=== PATIENT | male | born 1955 | race Caucasian/White ===

== ENCOUNTER 2023-05-10 12:17 | Inpatient (IN) | payer MEDICARE, SELFPAY ==
[2023-05-10 13:08] VITALS: BP 167/84; PULSE 62; RESP 18; TEMP 36.5; O2SAT 95; BMI 33.8
--- NOTE | 2023-05-10 13:24 | ED.PSYCH ---
HPI - Psych General Chief Complaint: Psychiatric Symptoms Stated Complaint: Hearing voices/Crisis Time Seen by Provider: 05/10/23 13:13 Source: patient and EMS Mode of arrival: ambulatory Limitations: no limitations History of Present Illness HPI Narrative: 68-year-old male aware person place time presents to the emergency department for hearing voices. Patient riding a bus got off came here he states he is looking for his phone initially now he states he is looking for his wallet at a psych facility. When asked the patient if he felt suicidal he states he does not know. Asked multiple times explaining that if he states that he is not suicidal explaining that I know that I am not suicidal they be safe to go home he continued to stay I do not know or not answer the question I do not feel comfortable with patient going home since he is hearing voices and might be suicidal I will place patient on [facility] 12 having evaluated by crisis. Related Data Home Medications Medication Instructions Recorded Confirmed atorvastatin 20 mg PO BEDTIME 05/10/23 05/10/23 clonidine 0.1 mg PO DAILY 05/10/23 05/10/23 lisinopril 5 mg PO BEDTIME 05/10/23 05/10/23 metformin 500 mg tablet,extended 500 mg PO DAILY 05/10/23 05/10/23 release 24 hr mirtazapine 25 mg PO BID 05/10/23 05/10/23 olanzapine 15 mg PO BEDTIME 05/10/23 05/10/23 pantoprazole 40 mg PO DAILY 05/10/23 05/10/23 Allergies Allergy/AdvReac Type Severity Reaction Status Date / Time No Known Allergies Allergy Verified 05/10/23 12:32 Review of Systems Review of Systems: Review of systems: General: Patient denies any fever chills recent illness or falls Musculoskeletal: Denies back pain or body aches or other injuries HEENT: denies headache, runny nose, ear pain Respiratory: denies shortness of breath, cough Cardiovascular: no chest pain or palpitations : denies dysuria, frequency Abdomen: no nausea vomiting denies abdominal pain Extremities: no swelling, no pain Skin: no diaphoresis Yes all other systems are reviewed and are negative PMFSH Social History Social History Alcohol intake: unknown Use of substances other than those prescribed or required for medical reasons: Unknown Advance Directives: No Advance Directives Information Provided: Yes Physical Exam Vital Signs: Vital Signs: Last Vital Signs Temp 97.7 F 05/10/23 13:08 Pulse 62 05/10/23 13:08 Resp 18 05/10/23 13:08 BP 167/84 H 05/10/23 13:08 Pulse Ox 95 05/10/23 13:08 O2 Del Method Room Air 05/10/23 13:08 BMI result Body Mass Index 33.8 General: Well-appearing well-nourished in no signs of distress HEENT: Normocephalic atraumatic Neck: No signs of JVD, no masses no tenderness or lymphadenopathy Cardiovascular: Regular rate and rhythm Respiratory: Clear to auscultation bilaterally Abdomen: Soft nontender no masses rectal exam performed guiac negative quality systems specialist confirmed. Extremities: Normal pedal pulses no signs of edema Skin: Dry warm no rashes Back: No tenderness full ROM Course Reevaluation(s) Reevaluation #1: 1929 Patient is actively suicidal by buying heroin. Time: 19:29 Medical Decision Making Medical Decision Making MDM Narrative: Patient is noncommittal about being suicidal I am concerned that he is suicidal he is hearing voices I do not feel comfortable discharging the patient home as I started to leave the room approximately 5 minutes after evaluating the patient explaining to the nurse with plan was water conversation was he started to scream for across the room. I am not suicidal I am not suicidal. I feel like his story is too concerning to just discharge. I will have crisis evaluate the patient. 1928 Seen by crisis will be inpatient bed search. Differential Diagnosis Differential Diagnoses: The differential diagnosis associated with the presentation includes Acute on chronic psychosis Admission/Observation Consideration of admission/observation: Escalation of care including admission/observation considered Lab Data [facility] Lab Attestation statement: I reviewed the patient's lab results. 05/10/23 13:55 05/10/23 13:55 Labs: Lab Results 05/10/23 05/10/23 05/10/23 Range/Units 12:58 13:55 13:55 WBC 5.8 (4.8-10.8) X10*3/uL RBC 5.68 (4.60-5.80) X10*6/uL Hgb 13.3 L (14.0-18.0) g/dl Hct 43.1 (42.0-52.0) % MCV 75.9 L (80.0-98.0) fL MCH 23.4 L (27.0-33.0) pg MCHC 30.9 L (31.0-36.0) g/dl RDW 19.0 H (11.0-16.0) % Plt Count 245 (160-400) X10*3/uL MPV 8.7 L (9.4-12.4) fL Immature Gran % (Auto) 0.3 (0.0-0.4) % Neut % (Auto) 57.1 (45-73) % Lymph % (Auto) 29.5 (20-40) % [place] % (Auto) 7.3 (2-11) % Eos % (Auto) 4.9 H (0-4) % Baso % (Auto) 0.9 (0-2) % Lymph # (Auto) 1.7 (1.2-4.9) X10*3/uL [place] # (Auto) 0.4 (0.1-1.2) X10*3/uL Eos # (Auto) 0.3 (0.0-0.4) X10*3/uL Baso # (Auto) 0.1 (0.0-0.2) X10*3/uL Abs Immat Gran (auto) 0.02 (0.00-0.03) X10*3/uL Absolute Neuts (auto) 3.3 (2.0-8.3) x10*3/uL Absolute Nucleated RBC 0.020 H (0.0-0.012) X10*3/uL Nucleated RBC % (auto) 0.3 H (0.0-0.2) /100WBC Sodium 141 (135-145) mmol/L Potassium 4.1 (3.3-5.1) mmol/L Chloride 102 (96-108) mmol/L Carbon Dioxide 25 (22-29) mmol/L Anion Gap 18 (12-20) BUN 17 H (9-16) mg/dL Creatinine 1.42 H (0.5-1.4) mg/dL Estim Creat Clear Calc 68.8 Estimated GFR 50 POC Glucose 84 (60-115) mg/dL Random Glucose 141 H (60-115) mg/dL Calcium 10.5 H (8.4-10.2) mg/dL Magnesium 2.3 (1.6-2.6) mg/dL Total Bilirubin 0.7 (0.0-1.0) mg/dL AST 23 (5-37) U/L ALT 23 (0-40) U/L Alkaline Phosphatase 99 (39-117) U/L Total Protein 8.6 H (6.5-8.0) g/dL Albumin 4.8 (3.5-5.0) g/dL Urine Color Urine Appearance Urine pH (5.0-9.0) Ur Specific [place] (1.005-1.025) Urine Protein (Neg-Trace) mg/dL Urine Glucose (UA) (Negative) mg/dL Urine Ketones (Negative) mg/dL Urine Blood (Negative) Urine Nitrite (Negative) Ur Leukocyte Esterase (Negative) Urine RBC (0-2) /HPF Urine WBC (0-5) /HPF Ur Squamous Epith Cells (0-2) /HPF Urine Bacteria (None Seen) Hyaline Casts (0-2) /LPF Salicylates (15-30) mg/dL Urine Opiates Screen (Not Detect) Urine Fentanyl Screen (Not Detect) Acetaminophen (<30) mcg/mL Ur Barbiturates Screen (Not Detect) Ur Phencyclidine Scrn (Not Detect) Ur Amphetamines Screen (Not Detect) U Benzodiazepines Scrn (Not Detect) Urine Cocaine Screen (Not Detect) U Marijuana (THC) Screen (Not Detect) Ethyl Alcohol < 10 mg/dL COVID-19 (CRISTIAN) (Negative) COVID-19 Clin Com 05/10/23 05/10/23 05/10/23 Range/Units 13:55 13:55 16:28 WBC (4.8-10.8) X10*3/uL RBC (4.60-5.80) X10*6/uL Hgb (14.0-18.0) g/dl Hct (42.0-52.0) % MCV (80.0-98.0) fL MCH (27.0-33.0) pg MCHC (31.0-36.0) g/dl RDW (11.0-16.0) % Plt Count (160-400) X10*3/uL MPV (9.4-12.4) fL Immature Gran % (Auto) (0.0-0.4) % Neut % (Auto) (45-73) % Lymph % (Auto) (20-40) % [place] % (Auto) (2-11) % Eos % (Auto) (0-4) % Baso % (Auto) (0-2) % Lymph # (Auto) (1.2-4.9) X10*3/uL [place] # (Auto) (0.1-1.2) X10*3/uL Eos # (Auto) (0.0-0.4) X10*3/uL Baso # (Auto) (0.0-0.2) X10*3/uL Abs Immat Gran (auto) (0.00-0.03) X10*3/uL Absolute Neuts (auto) (2.0-8.3) x10*3/uL Absolute Nucleated RBC (0.0-0.012) X10*3/uL Nucleated RBC % (auto) (0.0-0.2) /100WBC Sodium (135-145) mmol/L Potassium (3.3-5.1) mmol/L Chloride (96-108) mmol/L Carbon Dioxide (22-29) mmol/L Anion Gap (12-20) BUN (9-16) mg/dL Creatinine (0.5-1.4) mg/dL Estim Creat Clear Calc Estimated GFR POC Glucose (60-115) mg/dL Random Glucose (60-115) mg/dL Calcium (8.4-10.2) mg/dL Magnesium (1.6-2.6) mg/dL Total Bilirubin (0.0-1.0) mg/dL AST (5-37) U/L ALT (0-40) U/L Alkaline Phosphatase (39-117) U/L Total Protein (6.5-8.0) g/dL Albumin (3.5-5.0) g/dL Urine Color Yellow Urine Appearance Clear Urine pH 5.5 (5.0-9.0) Ur Specific [place] 1.020 (1.005-1.025) Urine Protein Trace (Neg-Trace) mg/dL Urine Glucose (UA) Negative (Negative) mg/dL Urine Ketones Trace (Negative) mg/dL Urine Blood Negative (Negative) Urine Nitrite Negative (Negative) Ur Leukocyte Esterase Small (1+) H (Negative) Urine RBC 0-2 (0-2) /HPF Urine WBC 6-10 (0-5) /HPF Ur Squamous Epith Cells 0-2 (0-2) /HPF Urine Bacteria 3+ (None Seen) Hyaline Casts 6-10 (0-2) /LPF Salicylates < 5.0 L (15-30) mg/dL Urine Opiates Screen (Not Detect) Urine Fentanyl Screen (Not Detect) Acetaminophen < 17 (<30) mcg/mL Ur Barbiturates Screen (Not Detect) Ur Phencyclidine Scrn (Not Detect) Ur Amphetamines Screen (Not Detect) U Benzodiazepines Scrn (Not Detect) Urine Cocaine Screen (Not Detect) U Marijuana (THC) Screen (Not Detect) Ethyl Alcohol mg/dL COVID-19 (CRISTIAN) Negative (Negative) COVID-19 Clin Com See Note 05/10/23 Range/Units 16:28 WBC (4.8-10.8) X10*3/uL RBC (4.60-5.80) X10*6/uL Hgb (14.0-18.0) g/dl Hct (42.0-52.0) % MCV (80.0-98.0) fL MCH (27.0-33.0) pg MCHC (31.0-36.0) g/dl RDW (11.0-16.0) % Plt Count (160-400) X10*3/uL MPV (9.4-12.4) fL Immature Gran % (Auto) (0.0-0.4) % Neut % (Auto) (45-73) % Lymph % (Auto) (20-40) % [place] % (Auto) (2-11) % Eos % (Auto) (0-4) % Baso % (Auto) (0-2) % Lymph # (Auto) (1.2-4.9) X10*3/uL [place] # (Auto) (0.1-1.2) X10*3/uL Eos # (Auto) (0.0-0.4) X10*3/uL Baso # (Auto) (0.0-0.2) X10*3/uL Abs Immat Gran (auto) (0.00-0.03) X10*3/uL Absolute Neuts (auto) (2.0-8.3) x10*3/uL Absolute Nucleated RBC (0.0-0.012) X10*3/uL Nucleated RBC % (auto) (0.0-0.2) /100WBC Sodium (135-145) mmol/L Potassium (3.3-5.1) mmol/L Chloride (96-108) mmol/L Carbon Dioxide (22-29) mmol/L Anion Gap (12-20) BUN (9-16) mg/dL Creatinine (0.5-1.4) mg/dL Estim Creat Clear Calc Estimated GFR POC Glucose (60-115) mg/dL Random Glucose (60-115) mg/dL Calcium (8.4-10.2) mg/dL Magnesium (1.6-2.6) mg/dL Total Bilirubin (0.0-1.0) mg/dL AST (5-37) U/L ALT (0-40) U/L Alkaline Phosphatase (39-117) U/L Total Protein (6.5-8.0) g/dL Albumin (3.5-5.0) g/dL Urine Color Urine Appearance Urine pH (5.0-9.0) Ur Specific [place] (1.005-1.025) Urine Protein (Neg-Trace) mg/dL Urine Glucose (UA) (Negative) mg/dL Urine Ketones (Negative) mg/dL Urine Blood (Negative) Urine Nitrite (Negative) Ur Leukocyte Esterase (Negative) Urine RBC (0-2) /HPF Urine WBC (0-5) /HPF Ur Squamous Epith Cells (0-2) /HPF Urine Bacteria (None Seen) Hyaline Casts (0-2) /LPF Salicylates (15-30) mg/dL Urine Opiates Screen Not Detected (Not Detect) Urine Fentanyl Screen POSITIVE H (Not Detect) Acetaminophen (<30) mcg/mL Ur Barbiturates Screen Not Detected (Not Detect) Ur Phencyclidine Scrn Not Detected (Not Detect) Ur Amphetamines Screen Not Detected (Not Detect) U Benzodiazepines Scrn Not Detected (Not Detect) Urine Cocaine Screen POSITIVE H (Not Detect) U Marijuana (THC) Screen POSITIVE H (Not Detect) Ethyl Alcohol mg/dL COVID-19 (CRISTIAN) (Negative) COVID-19 Clin Com External Record Review External record reviewed: Inpatient record He has no previous visits here. Social Determinants Patient?s care significantly limited by Social Determinants of Health including: Inadequate housing and Low income Core Measures AMI core measures followed: Yes Discharge Plan Discharge Clinical Impression: Acute psychosis Patient Disposition: Still a Patient Prescriptions: No Action clonidine 0.1 mg PO DAILY mirtazapine 25 mg PO BID pantoprazole 40 mg PO DAILY lisinopril 5 mg PO BEDTIME atorvastatin 20 mg PO BEDTIME metformin 500 mg Tablet Extended Release 24 Hr 500 mg PO DAILY olanzapine 15 mg PO BEDTIME Interventions: [place]-Suicide Risk Severity Scale Last Done: 05/10/23 14:05
[2023-05-10 14:18] LABS: Alanine Aminotransferase 23 U/L (0-40); Albumin Level 4.8 g/dL (3.5-5.0); Alkaline Phosphatase 99 U/L (39-117); Anion Gap 18 (12-20); Aspartate Amino Transferase 23 U/L (5-37); Bilirubin Total 0.7 mg/dL (0.0-1.0); Blood Urea Nitrogen 17 mg/dL (9-16); Calcium 10.5 mg/dL (8.4-10.2); Carbon Dioxide 25 mmol/L (22-29); Chloride 102 mmol/L (96-108); Creatinine Clr Calc Pharmacy 68.8; Estimated Glomerular Filt Rate 50; Ethanol < 10 mg/dL; Glucose Random 141 mg/dL (60-115); Magnesium 2.3 mg/dL (1.6-2.6); Potassium 4.1 mmol/L (3.3-5.1); Sodium 141 mmol/L (135-145); Total Protein 8.6 g/dL (6.5-8.0)
--- NOTE | 2023-05-10 14:32 | PC.NURSE ---
Pt appears to be hearing voices and seeing things. Laying on bed with eyes closed, yelling 'get the f--- away from me, I'll kill your ass'. Straws found in pt's wallet. MCKEON not obtained yet
[2023-05-10 20:59] VITALS: BP 151/74; PULSE 65; RESP 18; TEMP 36.6; O2SAT 95
[2023-05-11 01:48] VITALS: BP 147/79; PULSE 60; RESP 20; TEMP 36.3; O2SAT 98
--- NOTE | 2023-05-11 05:34 | PC.NURSE ---
Patient slept through the night, no distress observed/reported, medication rec completed/approved/MAR active, behavior non concerning, disposition per care team is section 12 inpatient bed search, VSS, labs completed/resulted, will continue to monitor.
--- NOTE | 2023-05-11 07:08 | HE.PHANOTE ---
Re: methadone verification last dose 95 mg 05/10/23 with [facility] [phone]
[2023-05-11] MEDS: methADONE HCl 20 MG/2 ML ORAL.CONC 95 MG PO (07:17)
--- NOTE | 2023-05-11 09:24 | PC.NURSE ---
Pt currently sleeping; AM meds held until patient wakes. RR are even and unlabored bilaterally on RA. WCTA
[2023-05-11] MEDS: metFORMIN HCl ER 500 MG TAB.ER.24H PO (09:56)
[2023-05-11] MEDS: Omeprazole 20 MG CAPSULE.DR PO (09:56)
[2023-05-11] MEDS: QUEtiapine Fumarate 25 MG TABLET PO ×2 (09:56→20:52)
[2023-05-11] MEDS: cloNIDine HCL 0.1 MG TABLET PO (09:57)
[2023-05-11 11:55] VITALS: BP 109/62; PULSE 60; RESP 20; TEMP 36.8; O2SAT 96
--- NOTE | 2023-05-11 15:51 | P.HPPS_ITS ---
HPI Date of Service: 05/11/23 Chief Complaint: SI Sources of Information: patient interviewed, chart reviewed and crisis/core team assessment reviewed HPI Subjective Notes: Deng Warning and Conditional Voluntary Narrative: The patient is a 68-year-old male, living alone in [place], referred from the emergency room by the care team for continuation of care. The patient presented to [facility] Emergency Room stating that he is hearing voices and he feels suicidal. Apparently, a few days ago he was at [facility] and discharged to his place with follow-up appointments. He stated that in the previous admission, daily lost his home and they were going to reverse him. He came to [place] with the money to buy heroin and try to kill himself. He stated that he was going to buy heroin to go to sleep and never wake up again.. On interview, the patient was very tired, he stated that he was hearing voices and he was feeling suicidal. He was able to elaborate about the content of the auditory hallucinations, there were voices with derogatory content commanding him to kill himself. He was internally preoccupied, looking that he was responding to internal stimuli. I offer him options and he agreed to take Zyprexa p.r.n.. At this moment, we have very limited information but the patient admitted suicidal ideation with auditory hallucination and he was unable to contract for safety at this moment. We will try to gather collateral information the next hours. Past Psychiatric History: The patient was recently admitted at another facility for suicidal ideation and psychosis. We do not have more information at this moment. Medical Evaluation Reviewed: Hospitalist Garimaal Pending [facility] Family History: Unknown, the patient is unable to provide information Social History: According to the crisis team, the patient lives alone in [place] he is single never and does not have social support. Substance History: He admitted prior substance abuse, his U tox came up positive to cocaine fentanyl and opioids with cannabis Trauma History: Unable to elaborate Diagnostics Vital Signs (24Hr): Vital Signs - 24 hr 05/10/23 20:59 05/11/23 01:48 05/11/23 11:55 Temperature 97.8 F 97.4 F 98.2 F Pulse Rate 65 60 60 Respiratory Rate 18 20 20 Blood Pressure 151/74 H 147/79 H 109/62 Pulse Oximetry 95 98 96 Oxygen Delivery Method Room Air Room Air Room Air BMI result Body Mass Index 33.8 Labs 05/10/23 13:55 05/10/23 13:55 Labs: Laboratory Results - last 48 hr 05/10/23 05/10/23 05/10/23 12:58 13:55 13:55 WBC 5.8 RBC 5.68 Hgb 13.3 L Hct 43.1 MCV 75.9 L MCH 23.4 L MCHC 30.9 L RDW 19.0 H Plt Count 245 MPV 8.7 L Immature Gran % (Auto) 0.3 Neut % (Auto) 57.1 Lymph % (Auto) 29.5 [place] % (Auto) 7.3 Eos % (Auto) 4.9 H Baso % (Auto) 0.9 Lymph # (Auto) 1.7 [place] # (Auto) 0.4 Eos # (Auto) 0.3 Baso # (Auto) 0.1 Abs Immat Gran (auto) 0.02 Absolute Neuts (auto) 3.3 Absolute Nucleated RBC 0.020 H Nucleated RBC % (auto) 0.3 H Sodium 141 Potassium 4.1 Chloride 102 Carbon Dioxide 25 Anion Gap 18 BUN 17 H Creatinine 1.42 H Estim Creat Clear Calc 68.8 Estimated GFR 50 POC Glucose 84 Random Glucose 141 H Calcium 10.5 H Magnesium 2.3 Total Bilirubin 0.7 AST 23 ALT 23 Alkaline Phosphatase 99 Total Protein 8.6 H Albumin 4.8 Urine Color Urine Appearance Urine pH Ur Specific [place] Urine Protein Urine Glucose (UA) Urine Ketones Urine Blood Urine Nitrite Ur Leukocyte Esterase Urine RBC Urine WBC Ur Squamous Epith Cells Urine Bacteria Hyaline Casts Salicylates Urine Opiates Screen Urine Fentanyl Screen Acetaminophen Ur Barbiturates Screen Ur Phencyclidine Scrn Ur Amphetamines Screen U Benzodiazepines Scrn Urine Cocaine Screen U Marijuana (THC) Screen Ethyl Alcohol < 10 COVID-19 (CRISTIAN) COVID-19 Clin Com 05/10/23 05/10/23 05/10/23 13:55 13:55 16:28 WBC RBC Hgb Hct MCV MCH MCHC RDW Plt Count MPV Immature Gran % (Auto) Neut % (Auto) Lymph % (Auto) [place] % (Auto) Eos % (Auto) Baso % (Auto) Lymph # (Auto) [place] # (Auto) Eos # (Auto) Baso # (Auto) Abs Immat Gran (auto) Absolute Neuts (auto) Absolute Nucleated RBC Nucleated RBC % (auto) Sodium Potassium Chloride Carbon Dioxide Anion Gap BUN Creatinine Estim Creat Clear Calc Estimated GFR POC Glucose Random Glucose Calcium Magnesium Total Bilirubin AST ALT Alkaline Phosphatase Total Protein Albumin Urine Color Yellow Urine Appearance Clear Urine pH 5.5 Ur Specific [place] 1.020 Urine Protein Trace Urine Glucose (UA) Negative Urine Ketones Trace Urine Blood Negative Urine Nitrite Negative Ur Leukocyte Esterase Small (1+) H Urine RBC 0-2 Urine WBC 6-10 Ur Squamous Epith Cells 0-2 Urine Bacteria 3+ Hyaline Casts 6-10 Salicylates < 5.0 L Urine Opiates Screen Urine Fentanyl Screen Acetaminophen < 17 Ur Barbiturates Screen Ur Phencyclidine Scrn Ur Amphetamines Screen U Benzodiazepines Scrn Urine Cocaine Screen U Marijuana (THC) Screen Ethyl Alcohol COVID-19 (CRISTIAN) Negative COVID-XOR.MOTORS See Note 05/10/23 16:28 WBC RBC Hgb Hct MCV MCH MCHC RDW Plt Count MPV Immature Gran % (Auto) Neut % (Auto) Lymph % (Auto) [place] % (Auto) Eos % (Auto) Baso % (Auto) Lymph # (Auto) [place] # (Auto) Eos # (Auto) Baso # (Auto) Abs Immat Gran (auto) Absolute Neuts (auto) Absolute Nucleated RBC Nucleated RBC % (auto) Sodium Potassium Chloride Carbon Dioxide Anion Gap BUN Creatinine Estim Creat Clear Calc Estimated GFR POC Glucose Random Glucose Calcium Magnesium Total Bilirubin AST ALT Alkaline Phosphatase Total Protein Albumin Urine Color Urine Appearance Urine pH Ur Specific [place] Urine Protein Urine Glucose (UA) Urine Ketones Urine Blood Urine Nitrite Ur Leukocyte Esterase Urine RBC Urine WBC Ur Squamous Epith Cells Urine Bacteria Hyaline Casts Salicylates Urine Opiates Screen Not Detected Urine Fentanyl Screen POSITIVE H Acetaminophen Ur Barbiturates Screen Not Detected Ur Phencyclidine Scrn Not Detected Ur Amphetamines Screen Not Detected U Benzodiazepines Scrn Not Detected Urine Cocaine Screen POSITIVE H U Marijuana (THC) Screen POSITIVE H Ethyl Alcohol COVID-19 (CRISTIAN) COVID-XOR.MOTORS Meds/Allergies Meds Home Medications Medication Instructions Recorded Confirmed Type atorvastatin 20 mg PO BEDTIME 05/10/23 05/10/23 History clonidine 0.1 mg PO DAILY 05/10/23 05/10/23 History lisinopril 5 mg PO BEDTIME 05/10/23 05/10/23 History metformin 500 mg tablet,extended 500 mg PO DAILY 05/10/23 05/10/23 History release 24 hr olanzapine 15 mg PO BEDTIME 05/10/23 05/10/23 History pantoprazole 40 mg PO DAILY 05/10/23 05/10/23 History quetiapine 25 mg tablet 25 mg PO BID 05/10/23 05/10/23 History methadone 10 mg/5 mL oral solution 95 mg PO DAILY 05/11/23 05/11/23 History Allergies Allergies Allergy/AdvReac Type Severity Reaction Status Date / Time No Known Allergies Allergy Verified 05/10/23 12:32 Mental Status Exam Mental Status Exam Patient Appearance: Disheveled and Unkempt Patient Orientation: Person and Situation Level of Consciousness: Awake and Appropriate Patient Behavior: Guarded, Passive and Poor Eye Contact Mood Description: Withdrawn, Depressed and Sad Affect Description: Blunted Patient Cognition Impaired: Yes Ability to Follow Directions: Fair Speech Pattern: Monotone and Poor Articulation Hallucinations: Auditory Delusions: Paranoid Ideation Thought Process: Illogical and Slowed Thinking Thought Content: positive for [place], positive for Loose Associations and positive for Thought Blocking Judgement: Poor Assessment & Plan Assessment & Plan (1) Acute psychosis: Status: Acute Code(s): F23 - Brief psychotic disorder Plan The patient is a 68-year-old male with a past history of psychosis and depression admitted for suicidal ideation with intent to overdose on heroin. The patient was recently admitted into the hospital and discharged with follow-up treatment but then he came at [place] with a plan to kill himself by overdose. Plan 1. Gather collateral information at this moment we have very few information regarding his prior treatment. 2. The patient is actively psychotic hearing voices with derogatory content he agreed to take Zyprexa 5 mg p.o. now. 3. Blood work and medication management. 4. 5 minute checks. 5. Reassessment with results. Patient educated on: diagnosis and therapeutic strategies Informed Consent: understands Reason for continued inpatient stay Substantial Risk for: harm to self, inability to function, rapid decompensation and med/psych decompensation Statement Statement: I have reviewed the history and physical and performed a pertinent examination on my patient. No changes have occurred unless specified. If the History and Physical was not performed prior to admission, the Hospitalist's service will be consulted for completing the admission physical. Time Spent With Patient Time: Total time managing care of this patient today __45__ minutes.
[2023-05-11] MEDS: OLANZapine ODT 10 MG TAB.RAPDIS 5 MG TRANSLINGU (16:19)
--- NOTE | 2023-05-11 16:39 | PC.ADMIT ---
Addendum entered by Yvonne Montague RN 05/11/23 18:08: Pt. awakened and agreed to sign release for sister. Sister Pepper Kat updated by telephone about pt's admission. States pt. says she is his HCP but she has never actually signed the paperwork. Original Note: Pt. arrived on unit 11:45 via WC accompanied by this com writer and security. Pt. admitted from [facility] pod for SI with plan. Pt. malodorous and disheveled. Able to move independently without assistive devices. Difficult to rouse and maintain wakefulness for tranfer to unit. Pt. was recently inpatient at [facility]. He reports they lost his phone and agreed to reimburse him half its cost. He reports that he took a bus from [place] to [place] to collect this money and purchase Heroin to kill himself, because I'm tired. I've lived. I just want to go to sleep and not wake up. Pt. denies VH, but endorses auditory command hallucinations to hurt himself. He also reports homicidal ideation with no current plan. He reports he has been incarcerated in the past for assault and attempted murder. Pt. refused to relinquish metal neck chain with pendent upon arrival on unit, but eventually agreed to hand it over. He then ate lunch and slept and refused to further participate in any admission assessments. He reports he is so tired because he has been on a long cocaine run and has not slept for a long time. He reports he is at risk to lose his apartment and is in the middle of a court ordered eviction.
[2023-05-11 18:00] VITALS: BP 105/62; PULSE 62; RESP 18; TEMP 36.1; O2SAT 93
[2023-05-11] MEDS: OLANZapine 7.5 MG TABLET 15 MG PO (20:51)
[2023-05-11] MEDS: traZODone HCL 50 MG TABLET PO (20:51)
[2023-05-11] MEDS: Atorvastatin Calcium 20 MG TABLET PO (20:52)
[2023-05-11] MEDS: lisinopriL 5 MG TABLET PO (20:52)
[2023-05-12 00:17] LABS: Glucose, Whole Blood 92 mg/dL (60-115)
[2023-05-12 08:07] VITALS: BP 135/71; PULSE 60; RESP 15; TEMP 36.7; O2SAT 93
[2023-05-12] MEDS: Omeprazole 20 MG CAPSULE.DR PO (08:09)
[2023-05-12] MEDS: metFORMIN HCl ER 500 MG TAB.ER.24H PO (08:09)
[2023-05-12] MEDS: QUEtiapine Fumarate 25 MG TABLET PO ×2 (08:09→20:50)
[2023-05-12] MEDS: cloNIDine HCL 0.1 MG TABLET PO (08:09)
[2023-05-12] MEDS: methADONE HCl 20 MG/2 ML ORAL.CONC 95 MG PO (08:43)
[2023-05-12 08:54] LABS: Alanine Aminotransferase 21 U/L (0-40); Albumin Level 4.4 g/dL (3.5-5.0); Alkaline Phosphatase 100 U/L (39-117); Anion Gap 14 (12-20); Aspartate Amino Transferase 22 U/L (5-37); Bilirubin Total 0.5 mg/dL (0.0-1.0); Blood Urea Nitrogen 18 mg/dL (9-16); Calcium 10.7 mg/dL (8.4-10.2); Carbon Dioxide 26 mmol/L (22-29); Chloride 104 mmol/L (96-108); Cholesterol 252 mg/dL; Creatinine Clr Calc Pharmacy 79.4; Estimated Glomerular Filt Rate 59; Glucose Fasting 112 mg/dL (60-99); HDL Cholesterol 50 mg/dL; LDL Cholesterol Calculated 181 mg/dl; Potassium 4.3 mmol/L (3.3-5.1); Sodium 140 mmol/L (135-145); Total Protein 7.7 g/dL (6.5-8.0); Triglycerides 106 mg/dL
--- NOTE | 2023-05-12 11:01 | P.PNPSI_ITS ---
Subjective Subjective Date of Service: 05/12/23 Reason For Visit: SI Subjective Notes: Conditional Voluntary Interim History: The nursing staff reported the patient have verbalized suicidal ideation in the morning, he also admitted auditory hallucinations with derogatory content. On interview, the patient remains internally preoccupied, psychotic but it was still him to heal himself. We will try to gather more collateral information since he was recently admitted into another facility. Mental Status Exam Mental Status Exam Patient Appearance: Appropriate Patient Orientation: Person and Situation Level of Consciousness: Awake and Appropriate Patient Behavior: Guarded and Passive Mood Description: Withdrawn Affect Description: Blunted Ability to Follow Directions: Fair Speech Pattern: Clear Hallucinations: Auditory (With derogatory content, commanding him to hurt himself) Delusions: Paranoid Ideation Thought Process: Distracted and Evasive Thought Content: positive for [place] and positive for Circumstantial Judgement: Poor Diagnostics Vital Signs (24Hr): Vital Signs - 24 hr 05/11/23 11:55 05/11/23 18:00 05/12/23 08:07 Temperature 98.2 F 96.9 F 98.1 F Pulse Rate 60 62 60 Respiratory Rate 20 18 15 Blood Pressure 109/62 105/62 135/71 Pulse Oximetry 96 93 93 Oxygen Delivery Method Room Air Room Air Room Air BMI result Body Mass Index 33.8 Labs 05/10/23 13:55 05/12/23 08:16 Labs: Laboratory Results - last 48 hr 05/10/23 05/10/23 05/10/23 12:58 13:55 13:55 WBC 5.8 RBC 5.68 Hgb 13.3 L Hct 43.1 MCV 75.9 L MCH 23.4 L MCHC 30.9 L RDW 19.0 H Plt Count 245 MPV 8.7 L Immature Gran % (Auto) 0.3 Neut % (Auto) 57.1 Lymph % (Auto) 29.5 [place] % (Auto) 7.3 Eos % (Auto) 4.9 H Baso % (Auto) 0.9 Lymph # (Auto) 1.7 [place] # (Auto) 0.4 Eos # (Auto) 0.3 Baso # (Auto) 0.1 Abs Immat Gran (auto) 0.02 Absolute Neuts (auto) 3.3 Absolute Nucleated RBC 0.020 H Nucleated RBC % (auto) 0.3 H Sodium 141 Potassium 4.1 Chloride 102 Carbon Dioxide 25 Anion Gap 18 BUN 17 H Creatinine 1.42 H Estim Creat Clear Calc 68.8 Estimated GFR 50 POC Glucose 84 Random Glucose 141 H Fasting Glucose Calcium 10.5 H Magnesium 2.3 Total Bilirubin 0.7 AST 23 ALT 23 Alkaline Phosphatase 99 Total Protein 8.6 H Albumin 4.8 Triglycerides Cholesterol LDL Cholesterol, Calc HDL Cholesterol Urine Color Urine Appearance Urine pH Ur Specific [place] Urine Protein Urine Glucose (UA) Urine Ketones Urine Blood Urine Nitrite Ur Leukocyte Esterase Urine RBC Urine WBC Ur Squamous Epith Cells Urine Bacteria Hyaline Casts Salicylates Urine Opiates Screen Urine Fentanyl Screen Acetaminophen Ur Barbiturates Screen Ur Phencyclidine Scrn Ur Amphetamines Screen U Benzodiazepines Scrn Urine Cocaine Screen U Marijuana (THC) Screen Ethyl Alcohol < 10 COVID-19 (CRISTIAN) COVID-WhatsApp 05/10/23 05/10/23 05/10/23 13:55 13:55 16:28 WBC RBC Hgb Hct MCV MCH MCHC RDW Plt Count MPV Immature Gran % (Auto) Neut % (Auto) Lymph % (Auto) [place] % (Auto) Eos % (Auto) Baso % (Auto) Lymph # (Auto) [place] # (Auto) Eos # (Auto) Baso # (Auto) Abs Immat Gran (auto) Absolute Neuts (auto) Absolute Nucleated RBC Nucleated RBC % (auto) Sodium Potassium Chloride Carbon Dioxide Anion Gap BUN Creatinine Estim Creat Clear Calc Estimated GFR POC Glucose Random Glucose Fasting Glucose Calcium Magnesium Total Bilirubin AST ALT Alkaline Phosphatase Total Protein Albumin Triglycerides Cholesterol LDL Cholesterol, Calc HDL Cholesterol Urine Color Yellow Urine Appearance Clear Urine pH 5.5 Ur Specific [place] 1.020 Urine Protein Trace Urine Glucose (UA) Negative Urine Ketones Trace Urine Blood Negative Urine Nitrite Negative Ur Leukocyte Esterase Small (1+) H Urine RBC 0-2 Urine WBC 6-10 Ur Squamous Epith Cells 0-2 Urine Bacteria 3+ Hyaline Casts 6-10 Salicylates < 5.0 L Urine Opiates Screen Urine Fentanyl Screen Acetaminophen < 17 Ur Barbiturates Screen Ur Phencyclidine Scrn Ur Amphetamines Screen U Benzodiazepines Scrn Urine Cocaine Screen U Marijuana (THC) Screen Ethyl Alcohol COVID-19 (CRISTIAN) Negative COVID-WhatsApp See Note 05/10/23 05/11/23 05/12/23 16:28 15:43 08:16 WBC RBC Hgb Hct MCV MCH MCHC RDW Plt Count MPV Immature Gran % (Auto) Neut % (Auto) Lymph % (Auto) [place] % (Auto) Eos % (Auto) Baso % (Auto) Lymph # (Auto) [place] # (Auto) Eos # (Auto) Baso # (Auto) Abs Immat Gran (auto) Absolute Neuts (auto) Absolute Nucleated RBC Nucleated RBC % (auto) Sodium 140 Potassium 4.3 Chloride 104 Carbon Dioxide 26 Anion Gap 14 BUN 18 H Creatinine 1.23 Estim Creat Clear Calc 79.4 Estimated GFR 59 POC Glucose 92 Random Glucose Fasting Glucose 112 H Calcium 10.7 H Magnesium Total Bilirubin 0.5 AST 22 ALT 21 Alkaline Phosphatase 100 Total Protein 7.7 Albumin 4.4 Triglycerides 106 Cholesterol 252 LDL Cholesterol, Calc 181 HDL Cholesterol 50 Urine Color Urine Appearance Urine pH Ur Specific [place] Urine Protein Urine Glucose (UA) Urine Ketones Urine Blood Urine Nitrite Ur Leukocyte Esterase Urine RBC Urine WBC Ur Squamous Epith Cells Urine Bacteria Hyaline Casts Salicylates Urine Opiates Screen Not Detected Urine Fentanyl Screen POSITIVE H Acetaminophen Ur Barbiturates Screen Not Detected Ur Phencyclidine Scrn Not Detected Ur Amphetamines Screen Not Detected U Benzodiazepines Scrn Not Detected Urine Cocaine Screen POSITIVE H U Marijuana (THC) Screen POSITIVE H Ethyl Alcohol COVID-19 (CRISTIAN) COVID-19 Clin Com Medications Medications Current Medications Acetaminophen (Acetaminophen 325 Mg Tablet) 650 mg PO Q6H PRN PRN Reason: Headache/Pain Mild Scale (1-3) Al Hydroxide/Mg Hydroxide (Magnesium Hydrox/Alum Hydrox 30 Ml Oral.Susp) 30 ml PO Q6H PRN PRN Reason: Heartburn/Nausea Atorvastatin Calcium (Atorvastatin Calcium 20 Mg Tablet) 20 mg PO BEDTIME [facility] Last Admin: 05/11/23 20:52 Dose: 20 mg Clonidine HCl (Clonidine Hcl 0.1 Mg Tablet) 0.1 mg PO DAILY [facility] Last Admin: 05/12/23 08:09 Dose: 0.1 mg Hydroxyzine HCl (Hydroxyzine Hcl 25 Mg Tablet) 25 mg PO Q6H PRN PRN Reason: Anxiety Lisinopril (Lisinopril 5 Mg Tablet) 5 mg PO BEDTIME [facility] Last Admin: 05/11/23 20:52 Dose: 5 mg Magnesium Hydroxide (Milk Of Magnesia 30 Ml Oral.Susp) 30 ml PO DAILY PRN PRN Reason: Constipation Metformin HCl (Metformin Hcl Er 500 Mg Tab.Er.24h) 500 mg PO DAILY [facility] Last Admin: 05/12/23 08:09 Dose: 500 mg Methadone HCl (Methadone Hcl 20 Mg/2 Ml Oral.Conc) 95 mg PO DAILY [facility] Last Admin: 05/12/23 08:43 Dose: 95 mg Olanzapine (Olanzapine 7.5 Mg Tablet) 15 mg PO BEDTIME [facility] Last Admin: 05/11/23 20:51 Dose: 15 mg Olanzapine (Olanzapine Odt 10 Mg Tab.Rapdis) 5 mg TRANSLINGU TID PRN PRN Reason: Psychosis Omeprazole (Omeprazole 20 Mg Capsule.Dr) 20 mg PO DAILY [facility] Last Admin: 05/12/23 08:09 Dose: 20 mg Quetiapine Fumarate (Quetiapine Fumarate 25 Mg Tablet) 25 mg PO BID [facility] Last Admin: 05/12/23 08:09 Dose: 25 mg Trazodone HCl (Trazodone Hcl 50 Mg Tablet) 50 mg PO BEDTIME [facility]X1 PRN PRN Reason: Insomnia Last Admin: 05/11/23 20:51 Dose: 50 mg Allergies Allergies Allergy/AdvReac Type Severity Reaction Status Date / Time No Known Allergies Allergy Verified 05/10/23 12:32 Assessment & Plan Assessment & Plan (1) Acute psychosis: Status: Acute Code(s): F23 - Brief psychotic disorder Plan The patient is a 68-year-old male with a past history of psychosis and depression admitted for suicidal ideation with intent to overdose on heroin. The patient was recently admitted into the hospital and discharged with follow-up treatment but then he came at [place] with a plan to kill himself by overdose. Plan 1. Gather collateral information at this moment we have very few information regarding his prior treatment. 2. The patient is actively psychotic hearing voices with derogatory content he agreed to take Zyprexa 5 mg p.o. now. 3. Blood work and medication management. 4. 5 minute checks. 5. Reassessment with results. Reason for continued inpatient stay Substantial Risk for: inability to function, rapid decompensation and med/psych decompensation Time Spent With Patient Time: Total time managing care of this patient today __20__ minutes.
[2023-05-12 20:50] VITALS: BP 127/63; PULSE 60; RESP 18; TEMP 36.7; O2SAT 94
[2023-05-12] MEDS: Atorvastatin Calcium 20 MG TABLET PO (20:50)
[2023-05-12] MEDS: OLANZapine 7.5 MG TABLET 15 MG PO (20:50)
[2023-05-12] MEDS: lisinopriL 5 MG TABLET PO (20:51)
[2023-05-12] MEDS: OLANZapine ODT 10 MG TAB.RAPDIS 5 MG TRANSLINGU (23:19)
[2023-05-13 07:00] VITALS: BMI 34.1
[2023-05-13 08:10] VITALS: BP 132/66; PULSE 60; RESP 18; TEMP 36.6; O2SAT 94
[2023-05-13] MEDS: methADONE HCl 20 MG/2 ML ORAL.CONC 95 MG PO (08:54)
[2023-05-13] MEDS: QUEtiapine Fumarate 25 MG TABLET PO ×2 (08:54→20:16)
[2023-05-13] MEDS: metFORMIN HCl ER 500 MG TAB.ER.24H PO (08:55)
[2023-05-13] MEDS: cloNIDine HCL 0.1 MG TABLET PO (08:55)
[2023-05-13] MEDS: Omeprazole 20 MG CAPSULE.DR PO (08:55)
--- NOTE | 2023-05-13 11:47 | HO.PSYCHPN ---
Subjective Subjective Date of Service: 05/13/23 Reason For Visit: SI Subjective Notes: Conditional Voluntary Interim History: The nursing staff reported the patient had been common cooperative, internally preoccupied, he had a slept and took all his meals but yesterday he reported auditory hallucinations with derogatory content and commanding him to hurt himself. I advised him to take Zyprexa p.r.n. frequently as needed. On interview the patient reports still auditory hallucinations so he agreed increase Zyprexa to 20 mg p.o. q.h.s.. The case management social worker reported that her sister has contact him and apparently he had been frequent incarcerated and his mother when he was in assisted. Still morning that loss. Mental Status Exam Mental Status Exam Patient Appearance: Disheveled and Unkempt Patient Orientation: Person and Situation Level of Consciousness: Awake and Appropriate Patient Behavior: Guarded and Passive Mood Description: Withdrawn Affect Description: Constricted Patient Cognition Impaired: Yes Ability to Follow Directions: Good Speech Pattern: Impoverished and Appropriate Hallucinations: Auditory Delusions: Paranoid Ideation Thought Process: Distracted and Slowed Thinking Thought Content: positive for [place] and positive for Poverty of Content Judgement: Fair Diagnostics Vital Signs (24Hr): Vital Signs - 24 hr 05/12/23 20:50 05/13/23 08:10 Temperature 98.0 F 97.8 F Pulse Rate 60 60 Respiratory Rate 18 18 Blood Pressure 127/63 132/66 Pulse Oximetry 94 94 Oxygen Delivery Method Room Air Room Air BMI result Body Mass Index 33.8 Labs 05/10/23 13:55 05/12/23 08:16 Labs: Laboratory Results - last 48 hr 05/11/23 05/12/23 15:43 08:16 Sodium 140 Potassium 4.3 Chloride 104 Carbon Dioxide 26 Anion Gap 14 BUN 18 H Creatinine 1.23 Estim Creat Clear Calc 79.4 Estimated GFR 59 POC Glucose 92 Fasting Glucose 112 H Calcium 10.7 H Total Bilirubin 0.5 AST 22 ALT 21 Alkaline Phosphatase 100 Total Protein 7.7 Albumin 4.4 Triglycerides 106 Cholesterol 252 LDL Cholesterol, Calc 181 HDL Cholesterol 50 Medications Medications Current Medications Acetaminophen (Acetaminophen 325 Mg Tablet) 650 mg PO Q6H PRN PRN Reason: Headache/Pain Mild Scale (1-3) Al Hydroxide/Mg Hydroxide (Magnesium Hydrox/Alum Hydrox 30 Ml Oral.Susp) 30 ml PO Q6H PRN PRN Reason: Heartburn/Nausea Atorvastatin Calcium (Atorvastatin Calcium 20 Mg Tablet) 20 mg PO BEDTIME [facility] Last Admin: 05/12/23 20:50 Dose: 20 mg Clonidine HCl (Clonidine Hcl 0.1 Mg Tablet) 0.1 mg PO DAILY [facility] Last Admin: 05/13/23 08:55 Dose: 0.1 mg Hydroxyzine HCl (Hydroxyzine Hcl 25 Mg Tablet) 25 mg PO Q6H PRN PRN Reason: Anxiety Lisinopril (Lisinopril 5 Mg Tablet) 5 mg PO BEDTIME [facility] Last Admin: 05/12/23 20:51 Dose: 5 mg Magnesium Hydroxide (Milk Of Magnesia 30 Ml Oral.Susp) 30 ml PO DAILY PRN PRN Reason: Constipation Metformin HCl (Metformin Hcl Er 500 Mg Tab.Er.24h) 500 mg PO DAILY [facility] Last Admin: 05/13/23 08:55 Dose: 500 mg Methadone HCl (Methadone Hcl 20 Mg/2 Ml Oral.Conc) 95 mg PO DAILY [facility] Last Admin: 05/13/23 08:54 Dose: 95 mg Olanzapine (Olanzapine Odt 10 Mg Tab.Rapdis) 5 mg TRANSLINGU TID PRN PRN Reason: Psychosis Last Admin: 05/12/23 23:19 Dose: 5 mg Olanzapine (Olanzapine 10 Mg Tablet) 20 mg PO BEDTIME [facility] Omeprazole (Omeprazole 20 Mg Capsule.Dr) 20 mg PO DAILY [facility] Last Admin: 05/13/23 08:55 Dose: 20 mg Quetiapine Fumarate (Quetiapine Fumarate 25 Mg Tablet) 25 mg PO BID [facility] Last Admin: 05/13/23 08:54 Dose: 25 mg Trazodone HCl (Trazodone Hcl 50 Mg Tablet) 50 mg PO BEDTIME MRX1 PRN PRN Reason: Insomnia Last Admin: 05/11/23 20:51 Dose: 50 mg Allergies Allergies Allergy/AdvReac Type Severity Reaction Status Date / Time No Known Allergies Allergy Verified 05/10/23 12:32 Assessment & Plan Assessment & Plan (1) Acute psychosis: Status: Acute Code(s): F23 - Brief psychotic disorder Plan The patient is a 68-year-old male with a past history of psychosis and depression admitted for suicidal ideation with intent to overdose on heroin. The patient was recently admitted into the hospital and discharged with follow-up treatment but then he came at [place] with a plan to kill himself by overdose. Plan 1. Gather collateral information at this moment we have very few information regarding his prior treatment. 2. The patient is actively psychotic hearing voices with derogatory content he agreed to take Zyprexa 5 mg p.o. now. 3. Blood work and medication management. 4. 5 minute checks. 5. Reassessment with results. 6. Increase Zyprexa up to 20 mg p.o. q.h.s. to target psychosis. Reason for continued inpatient stay Substantial Risk for: inability to function, rapid decompensation and med/psych decompensation Time Spent With Patient Time: Total time managing care of this patient today __20__ minutes.
[2023-05-13 19:45] VITALS: BP 135/62; PULSE 68; RESP 18; TEMP 36.5; O2SAT 95
[2023-05-13] MEDS: OLANZapine 10 MG TABLET 20 MG PO (20:16)
[2023-05-13] MEDS: Atorvastatin Calcium 20 MG TABLET PO (20:16)
[2023-05-13] MEDS: lisinopriL 5 MG TABLET PO (20:17)
[2023-05-14] MEDS: hydrOXYzine HCL 25 MG TABLET PO ×2 (01:27→23:11)
[2023-05-14] MEDS: OLANZapine ODT 10 MG TAB.RAPDIS 5 MG TRANSLINGU ×2 (01:28→11:05)
[2023-05-14 08:00] VITALS: BP 155/78; PULSE 72; RESP 18; TEMP 36.8; O2SAT 97
[2023-05-14] MEDS: methADONE HCl 20 MG/2 ML ORAL.CONC 95 MG PO (08:05)
[2023-05-14] MEDS: metFORMIN HCl ER 500 MG TAB.ER.24H PO (08:09)
[2023-05-14] MEDS: cloNIDine HCL 0.1 MG TABLET PO (08:09)
[2023-05-14] MEDS: Omeprazole 20 MG CAPSULE.DR PO (08:09)
[2023-05-14] MEDS: QUEtiapine Fumarate 25 MG TABLET PO ×2 (08:09→20:51)
[2023-05-14] MEDS: OLANZapine ODT 10 MG TAB.RAPDIS TRANSLINGU (14:28)
--- NOTE | 2023-05-14 15:09 | P.PNPSI_ITS ---
Subjective Subjective Date of Service: 05/14/23 Reason For Visit: SI Subjective Notes: Conditional Voluntary Interim History: The nursing staff reported the patient had been complaining of auditory hallucinations commanding him to hurt himself and others. Also he reports that racing thoughts. He had been using p.r.n. Zydis 5 mg p.o. b.i.d. but it has limited affect. The patient reported that he had been very dysphoric so we agreed to add Zoloft 25 p.o. q.a.m. to target depression and we are going to increase the p.r.n. up to 10 mg. The social media specialist reported that the family preservation caseworker from the community came yesterday and apparently he is going to be evicted from his apartment. Also, the social media specialist tried to contact with his sister to get more collateral information. Mental Status Exam Mental Status Exam Patient Appearance: Well Grooomed and Appropriate Patient Orientation: Person and Situation Level of Consciousness: Awake Patient Behavior: Guarded and Cooperative Mood Description: Withdrawn Affect Description: Blunted Patient Cognition Impaired: Yes Ability to Follow Directions: Good Speech Pattern: Clear Hallucinations: Auditory Delusions: Paranoid Ideation and Ideas of Reference Thought Process: Distracted and Confusion Thought Content: positive for [place], positive for Poverty of Content and positive for Thought Blocking Judgement: Fair Diagnostics Vital Signs (24Hr): Vital Signs - 24 hr 05/13/23 19:45 05/14/23 08:00 Temperature 97.7 F 98.2 F Pulse Rate 68 72 Respiratory Rate 18 18 Blood Pressure 135/62 155/78 H Pulse Oximetry 95 97 Oxygen Delivery Method Room Air Room Air BMI result Body Mass Index 34.1 Labs 05/10/23 13:55 05/12/23 08:16 Medications Medications Current Medications Acetaminophen (Acetaminophen 325 Mg Tablet) 650 mg PO Q6H PRN PRN Reason: Headache/Pain Mild Scale (1-3) Al Hydroxide/Mg Hydroxide (Magnesium Hydrox/Alum Hydrox 30 Ml Oral.Susp) 30 ml PO Q6H PRN PRN Reason: Heartburn/Nausea Atorvastatin Calcium (Atorvastatin Calcium 20 Mg Tablet) 20 mg PO BEDTIME [facility] Last Admin: 05/13/23 20:16 Dose: 20 mg Clonidine HCl (Clonidine Hcl 0.1 Mg Tablet) 0.1 mg PO DAILY [facility] Last Admin: 05/14/23 08:09 Dose: 0.1 mg Hydroxyzine HCl (Hydroxyzine Hcl 25 Mg Tablet) 25 mg PO Q6H PRN PRN Reason: Anxiety Last Admin: 05/14/23 01:27 Dose: 25 mg Lisinopril (Lisinopril 5 Mg Tablet) 5 mg PO BEDTIME [facility] Last Admin: 05/13/23 20:17 Dose: 5 mg Magnesium Hydroxide (Milk Of Magnesia 30 Ml Oral.Susp) 30 ml PO DAILY PRN PRN Reason: Constipation Metformin HCl (Metformin Hcl Er 500 Mg Tab.Er.24h) 500 mg PO DAILY [facility] Last Admin: 05/14/23 08:09 Dose: 500 mg Methadone HCl (Methadone Hcl 20 Mg/2 Ml Oral.Conc) 95 mg PO DAILY [facility] Last Admin: 05/14/23 08:05 Dose: 95 mg Olanzapine (Olanzapine 10 Mg Tablet) 20 mg PO BEDTIME [facility] Last Admin: 05/13/23 20:16 Dose: 20 mg Olanzapine (Olanzapine Odt 10 Mg Tab.Rapdis) 10 mg TRANSLINGU TID PRN PRN Reason: Psychosis Last Admin: 05/14/23 14:28 Dose: 10 mg Omeprazole (Omeprazole 20 Mg Capsule.Dr) 20 mg PO DAILY [facility] Last Admin: 05/14/23 08:09 Dose: 20 mg Quetiapine Fumarate (Quetiapine Fumarate 25 Mg Tablet) 25 mg PO BID [facility] Last Admin: 05/14/23 08:09 Dose: 25 mg Sertraline HCl (Sertraline Hcl 25 Mg Tablet) 25 mg PO DAILY [facility] Trazodone HCl (Trazodone Hcl 50 Mg Tablet) 50 mg PO BEDTIME MRX1 PRN PRN Reason: Insomnia Last Admin: 05/11/23 20:51 Dose: 50 mg Allergies Allergies Allergy/AdvReac Type Severity Reaction Status Date / Time No Known Allergies Allergy Verified 05/10/23 12:32 Assessment & Plan Assessment & Plan (1) Acute psychosis: Status: Acute Code(s): F23 - Brief psychotic disorder Plan The patient is a 68-year-old male with a past history of psy chosis and depression admitted for suicidal ideation with intent to overdose on heroin. The patient was recently admitted into the hospital and discharged with follow-up treatment but then he came at [place] with a plan to kill himself by overdose. Plan 1. Gather collateral information at this moment we have very few information regarding his prior treatment. 2. The patient is actively psychotic hearing voices with derogatory content he agreed to take Zyprexa 5 mg p.o. now. 3. Blood work and medication management. 4. 5 minute checks. 5. Reassessment with results. 6. Increase Zyprexa up to 20 mg p.o. q.h.s. to target psychosis on May 13. 7. Start Zoloft 25 mg p.o. q.a.m. to target depression. 8. Increased p.r.n. up to 10 mg p.o. b.i.d. to target psychosis. Reason for continued inpatient stay Substantial Risk for: inability to function, rapid decompensation and med/psych decompensation Time Spent With Patient Time: Total time managing care of this patient today __20__ minutes.
[2023-05-14 20:45] VITALS: BP 121/64; PULSE 58; RESP 18; TEMP 36.4; O2SAT 94
[2023-05-14] MEDS: OLANZapine 10 MG TABLET 20 MG PO (20:51)
[2023-05-14] MEDS: Atorvastatin Calcium 20 MG TABLET PO (20:51)
[2023-05-14] MEDS: lisinopriL 5 MG TABLET PO (20:51)
[2023-05-14] MEDS: traZODone HCL 50 MG TABLET PO (23:11)
[2023-05-15] MEDS: traZODone HCL 50 MG TABLET PO ×2 (01:24→20:46)
[2023-05-15 08:00] VITALS: BP 141/74; PULSE 68; RESP 18; TEMP 35.9; O2SAT 94
[2023-05-15] MEDS: methADONE HCl 20 MG/2 ML ORAL.CONC 95 MG PO (09:13)
[2023-05-15] MEDS: QUEtiapine Fumarate 25 MG TABLET PO ×2 (09:16→20:47)
[2023-05-15] MEDS: cloNIDine HCL 0.1 MG TABLET PO (09:16)
[2023-05-15] MEDS: Sertraline HCL 25 MG TABLET PO (09:16)
[2023-05-15] MEDS: Omeprazole 20 MG CAPSULE.DR PO (09:16)
[2023-05-15] MEDS: metFORMIN HCl ER 500 MG TAB.ER.24H PO (09:16)
--- NOTE | 2023-05-15 16:14 | HO.PSYCHPN ---
Subjective Subjective Date of Service: 05/15/23 Reason For Visit: SI Subjective Notes: Conditional Voluntary Medical Problems Affecting Mental Status: Yes Interim History: muscle and joint pain Medication Compliance: Yes Side effects from medications: No Attending Groups: Yes Review of Systems Acute medical concerns: Yes pain Review of Systems Review of Systems Yes all other systems are reviewed and are negative Constitutional: Reports body ache(s) Mental Status Exam Mental Status Exam Patient Appearance: Unkempt (stains on his shirt) Patient Orientation: Person, Place, Time and Situation Level of Consciousness: Alert Patient Behavior: Appropriate Mood Description: Depressed (mildly irritable) Affect Description: Depressed Patient Cognition Impaired: No Ability to Follow Directions: Good Speech Pattern: Monotone Memory Description: Intact Hallucinations: None Delusions: Not Present Thought Process: Intact Thought Content: positive for Intact and positive for Suicidal Ideation (passive SI, no intent or plan) Depressive Symptoms: Insomnia, Muscle Pain and Loss of Energy Judgement: Fair Diagnostics Vital Signs (24Hr): Vital Signs - 24 hr 05/14/23 20:45 05/15/23 08:00 Temperature 97.6 F 96.7 F L Pulse Rate 58 68 Respiratory Rate 18 18 Blood Pressure 121/64 141/74 H Pulse Oximetry 94 94 Oxygen Delivery Method Room Air Room Air BMI result Body Mass Index 34.1 Labs 05/10/23 13:55 05/12/23 08:16 Medications Medications Current Medications Acetaminophen (Acetaminophen 325 Mg Tablet) 650 mg PO Q6H PRN PRN Reason: Headache/Pain Mild Scale (1-3) Al Hydroxide/Mg Hydroxide (Magnesium Hydrox/Alum Hydrox 30 Ml Oral.Susp) 30 ml PO Q6H PRN PRN Reason: Heartburn/Nausea Atorvastatin Calcium (Atorvastatin Calcium 20 Mg Tablet) [address] [facility] Last Admin: 05/14/23 20:51 Dose: 20 mg Clonidine HCl (Clonidine Hcl 0.1 Mg Tablet) 0.1 mg PO DAILY [facility] Last Admin: 05/15/23 09:16 Dose: 0.1 mg Hydroxyzine HCl (Hydroxyzine Hcl 25 Mg Tablet) 25 mg PO Q6H PRN PRN Reason: Anxiety Last Admin: 05/14/23 23:11 Dose: 25 mg Ibuprofen (Ibuprofen 400 Mg Tablet) 400 mg PO Q6H PRN PRN Reason: moderate pain Lisinopril (Lisinopril 5 Mg Tablet) [address] [facility] Last Admin: 05/14/23 20:51 Dose: 5 mg Magnesium Hydroxide (Milk Of Magnesia 30 Ml Oral.Susp) 30 ml PO DAILY PRN PRN Reason: Constipation Metformin HCl (Metformin Hcl Er 500 Mg Tab.Er.24h) [address] [facility] Last Admin: 05/15/23 09:16 Dose: 500 mg Methadone HCl (Methadone Hcl 20 Mg/2 Ml Oral.Conc) [address] [facility] Last Admin: 05/15/23 09:13 Dose: 95 mg Nicotine (Nicotine 7 Mg Patch.Td24) [address] [facility] Olanzapine (Olanzapine 10 Mg Tablet) 20 mg PO BEDTIME [facility] Last Admin: 05/14/23 20:51 Dose: 20 mg Olanzapine (Olanzapine Odt 10 Mg Tab.Rapdis) 10 mg TRANSLINGU TID PRN PRN Reason: Psychosis Last Admin: 05/14/23 14:28 Dose: 10 mg Omeprazole (Omeprazole 20 Mg Capsule.Dr) [address] [facility] Last Admin: 05/15/23 09:16 Dose: 20 mg Quetiapine Fumarate (Quetiapine Fumarate 25 Mg Tablet) [address] [facility] Last Admin: 05/15/23 09:16 Dose: 25 mg Sertraline HCl (Sertraline Hcl 25 Mg Tablet) [address] [facility] Last Admin: 05/15/23 09:16 Dose: 25 mg Trazodone HCl (Trazodone Hcl 50 Mg Tablet) 50 mg PO BEDTIME [facility]X1 PRN PRN Reason: Insomnia Last Admin: 05/15/23 01:24 Dose: 50 mg Allergies Allergies Allergy/AdvReac Type Severity Reaction Status Date / Time No Known Allergies Allergy Verified 05/10/23 12:32 Assessment & Plan Assessment & Plan (1) Acute psychosis: Status: Acute Code(s): F23 - Brief psychotic disorder Plan The patient is a 68-year-old male with a past history of psychosis and depression admitted for suicidal ideation with intent to overdose on heroin. The patient was recently admitted into the hospital and discharged with follow-up treatment but then he came at [place] with a plan to kill himself by overdose. Plan 1. Gather collateral information at this moment we have very few information regarding his prior treatment. 2. The patient is actively psychotic hearing voices with derogatory content he agreed to take Zyprexa 5 mg p.o. now. 3. Blood work and medication management. 4. 5 minute checks. 5. Reassessment with results. 6. Increase Zyprexa up to 20 mg p.o. q.h.s. to target psychosis on May 13. 7. Start Zoloft 25 mg p.o. q.a.m. to target depression. 8. Increased p.r.n. up to 10 mg p.o. b.i.d. to target psychosis. Add PRN Ibuprofen. Add nicotine patch at patient request. Reason for continued inpatient stay Substantial Risk for: harm to self Time Spent With Patient Time: Total time managing care of this patient today __25__ minutes.
[2023-05-15] MEDS: Ibuprofen 400 MG TABLET PO (17:04)
[2023-05-15] MEDS: OLANZapine ODT 10 MG TAB.RAPDIS TRANSLINGU (17:05)
[2023-05-15 20:10] VITALS: BP 148/74; PULSE 75; RESP 18; TEMP 36.6; O2SAT 95
[2023-05-15] MEDS: lisinopriL 5 MG TABLET PO (20:46)
[2023-05-15] MEDS: Acetaminophen 325 MG TABLET 650 MG PO (20:46)
[2023-05-15] MEDS: Atorvastatin Calcium 20 MG TABLET PO (20:47)
[2023-05-15] MEDS: OLANZapine 10 MG TABLET 20 MG PO (20:47)
[2023-05-16] MEDS: hydrOXYzine HCL 25 MG TABLET PO ×2 (00:47→21:08)
[2023-05-16] MEDS: traZODone HCL 50 MG TABLET PO ×3 (00:47→23:18)
[2023-05-16] MEDS: Ibuprofen 400 MG TABLET PO ×2 (04:42→21:08)
[2023-05-16 08:00] VITALS: BP 149/70; PULSE 72; RESP 16; TEMP 36.6; O2SAT 98
[2023-05-16] MEDS: methADONE HCl 20 MG/2 ML ORAL.CONC 95 MG PO (08:37)
[2023-05-16] MEDS: metFORMIN HCl ER 500 MG TAB.ER.24H PO (08:39)
[2023-05-16] MEDS: QUEtiapine Fumarate 25 MG TABLET PO ×2 (08:39→21:07)
[2023-05-16] MEDS: cloNIDine HCL 0.1 MG TABLET PO (08:39)
[2023-05-16] MEDS: Omeprazole 20 MG CAPSULE.DR PO (08:39)
[2023-05-16] MEDS: Sertraline HCL 25 MG TABLET PO (08:39)
--- NOTE | 2023-05-16 11:52 | P.PNPSI_ITS ---
Subjective Subjective Date of Service: 05/16/23 Reason For Visit: SI Subjective Notes: Conditional Voluntary Medical Problems Affecting Mental Status: Yes (generalized pain) Interim History: Slept better with some response to ibuprofen; however, patient states that he had sleep disturbance and that he is still having generalized pain. Wonders if it is withdrawl related. Would like to have a higher dose of methadone. Directed to discuss this with regular team tomorrow. Medication Compliance: Yes Side effects from medications: No Attending Groups: No Review of Systems Acute medical concerns: No Medical Review of Systems: unchanged Mental Status Exam Mental Status Exam Patient Appearance: Unkempt Patient Orientation: Person, Place, Time and Situation Level of Consciousness: Alert Patient Behavior: Appropriate Mood Description: Depressed Affect Description: Anxious Patient Cognition Impaired: No Ability to Follow Directions: Good Speech Pattern: Slurred Memory Description: Intact Hallucinations: None Delusions: Not Present Thought Process: Linear Thought Content: positive for Perseveration Depressive Symptoms: Insomnia, Muscle Pain and Increased Fatigue Judgement: Fair Diagnostics Vital Signs (24Hr): Vital Signs - 24 hr 05/15/23 20:10 05/16/23 08:00 Temperature 97.8 F 97.9 F Pulse Rate 75 72 Respiratory Rate 18 16 Blood Pressure 148/74 H 149/70 H Pulse Oximetry 95 98 Oxygen Delivery Method Room Air Room Air BMI result Body Mass Index 34.1 Labs 05/10/23 13:55 05/12/23 08:16 Medications Medications Current Medications Acetaminophen (Acetaminophen 325 Mg Tablet) 650 mg PO Q6H PRN PRN Reason: Headache/Pain Mild Scale (1-3) Last Admin: 05/15/23 20:46 Dose: 650 mg Al Hydroxide/Mg Hydroxide (Magnesium Hydrox/Alum Hydrox 30 Ml Oral.Susp) 30 ml PO Q6H PRN PRN Reason: Heartburn/Nausea Albuterol Sulfate (Albuterol Sulfate 90 Mcg 8 Gm Inhaler) 2 puff INHALE RQ6H PRN PRN Reason: Wheezing Atorvastatin Calcium (Atorvastatin Calcium 20 Mg Tablet) 20 mg PO BEDTIME [facility] Last Admin: 05/15/23 20:47 Dose: 20 mg Clonidine HCl (Clonidine Hcl 0.1 Mg Tablet) 0.1 mg PO DAILY [facility] Last Admin: 05/16/23 08:39 Dose: 0.1 mg Hydroxyzine HCl (Hydroxyzine Hcl 25 Mg Tablet) 25 mg PO Q6H PRN PRN Reason: Anxiety Last Admin: 05/16/23 00:47 Dose: 25 mg Ibuprofen (Ibuprofen 400 Mg Tablet) 400 mg PO Q6H PRN PRN Reason: moderate pain Last Admin: 05/16/23 04:42 Dose: 400 mg Lisinopril (Lisinopril 5 Mg Tablet) 5 mg PO BEDTIME [facility] Last Admin: 05/15/23 20:46 Dose: 5 mg Magnesium Hydroxide (Milk Of Magnesia 30 Ml Oral.Susp) 30 ml PO DAILY PRN PRN Reason: Constipation Metformin HCl (Metformin Hcl Er 500 Mg Tab.Er.24h) 500 mg PO DAILY [facility] Last Admin: 05/16/23 08:39 Dose: 500 mg Methadone HCl (Methadone Hcl 20 Mg/2 Ml Oral.Conc) 95 mg PO DAILY [facility] Last Admin: 05/16/23 08:37 Dose: 95 mg Nicotine (Nicotine 7 Mg Patch.Td24) 7 mg TRANSDERMA DAILY [facility] Last Admin: 05/15/23 17:06 Dose: Not Given Olanzapine (Olanzapine 10 Mg Tablet) 20 mg PO BEDTIME [facility] Last Admin: 05/15/23 20:47 Dose: 20 mg Olanzapine (Olanzapine Odt 10 Mg Tab.Rapdis) 10 mg TRANSLINGU TID PRN PRN Reason: Psychosis Last Admin: 05/15/23 17:05 Dose: 10 mg Omeprazole (Omeprazole 20 Mg Capsule.Dr) 20 mg PO DAILY [facility] Last Admin: 05/16/23 08:39 Dose: 20 mg Quetiapine Fumarate (Quetiapine Fumarate 25 Mg Tablet) 25 mg PO BID [facility] Last Admin: 05/16/23 08:39 Dose: 25 mg Sertraline HCl (Sertraline Hcl 25 Mg Tablet) 25 mg PO DAILY [facility] Last Admin: 05/16/23 08:39 Dose: 25 mg Trazodone HCl (Trazodone Hcl 50 Mg Tablet) 50 mg PO BEDTIME MRX1 PRN PRN Reason: Insomnia Last Admin: 05/16/23 00:47 Dose: 50 mg Allergies Allergies Allergy/AdvReac Type Severity Reaction Status Date / Time No Known Allergies Allergy Verified 05/10/23 12:32 Assessment & Plan Assessment & Plan (1) Acute psychosis: Status: Acute Code(s): F23 - Brief psychotic disorder Plan The patient is a 68-year-old male with a past history of psychosis and depression admitted for suicidal ideation with intent to overdose on heroin. The patient was recently admitted into the hospital and discharged with follow-up treatment but then he came at [place] with a plan to kill himself by overdose. Plan 1. Gather collateral information at this moment we have very few information regarding his prior treatment. 2. The patient is actively psychotic hearing voices with derogatory content he agreed to take Zyprexa 5 mg p.o. now. 3. Blood work and medication management. 4. 5 minute checks. 5. Reassessment with results. 6. Increase Zyprexa up to 20 mg p.o. q.h.s. to target psychosis on May 13. 7. Start Zoloft 25 mg p.o. q.a.m. to target depression. 8. Increased p.r.n. up to 10 mg p.o. b.i.d. to target psychosis. 9. Add PRN Ibuprofen. Add nicotine patch at patient request. no changes for 05/16 Reason for continued inpatient stay Substantial Risk for: med/psych decompensation Time Spent With Patient Time: Total time managing care of this patient today _20___ minutes.
[2023-05-16 20:00] VITALS: BP 151/75; PULSE 60; RESP 18; TEMP 36.5; O2SAT 95
[2023-05-16] MEDS: lisinopriL 5 MG TABLET PO (21:07)
[2023-05-16] MEDS: OLANZapine 10 MG TABLET 20 MG PO (21:07)
[2023-05-16] MEDS: Atorvastatin Calcium 20 MG TABLET PO (21:07)
[2023-05-17 08:05] VITALS: BP 125/74; PULSE 68; RESP 18; TEMP 36.6; O2SAT 94
[2023-05-17] MEDS: QUEtiapine Fumarate 25 MG TABLET PO (08:18)
[2023-05-17] MEDS: methADONE HCl 20 MG/2 ML ORAL.CONC 95 MG PO (08:18)
[2023-05-17] MEDS: Sertraline HCL 25 MG TABLET PO (08:18)
[2023-05-17] MEDS: Omeprazole 20 MG CAPSULE.DR PO (08:18)
[2023-05-17] MEDS: cloNIDine HCL 0.1 MG TABLET PO (08:18)
[2023-05-17] MEDS: Nicotine 7 MG PATCH.TD24 TRANSDERMA (08:18)
[2023-05-17] MEDS: metFORMIN HCl ER 500 MG TAB.ER.24H PO (08:18)
--- NOTE | 2023-05-17 11:13 | HO.PSYCHPN ---
Subjective Subjective Date of Service: 05/17/23 Reason For Visit: SI Subjective Notes: Conditional Voluntary Interim History: The nursing staff reported the patient had been fully compliant with treatment, he slept 7 hours but he reports poor sleep. He has been seen sleeping during the day. His appetite is much better yesterday he had a good day he plate being 1 he has participating certain groups. Still the staff has noted that he is internally preoccupied and responding to internal stimuli at times. The social work lecturer reported that she is going to follow up with a [facility] authority since apparently he is going to be evicted. On interview the patient reports some sporadic auditory hallucinations but he feels less distressed. Still psychotic but with EPS symptoms. I offered to D/C Seroquel but he wants it back. Mental Status Exam Mental Status Exam Patient Appearance: Appropriate Patient Orientation: Person and Situation Level of Consciousness: Awake and Appropriate Patient Behavior: Guarded and Passive Mood Description: Calm Affect Description: Constricted Patient Cognition Impaired: Yes Ability to Follow Directions: Good Speech Pattern: Clear Hallucinations: Auditory Delusions: Paranoid Ideation Thought Process: Distracted and Linear Thought Content: positive for Circumstantial and positive for Slowed Thinking Judgement: Fair Diagnostics Vital Signs (24Hr): Vital Signs - 24 hr 05/16/23 20:00 05/17/23 08:05 Temperature 97.7 F 97.9 F Pulse Rate 60 68 Respiratory Rate 18 18 Blood Pressure 151/75 H 125/74 Pulse Oximetry 95 94 Oxygen Delivery Method Room Air Room Air BMI result Body Mass Index 34.1 Labs 05/10/23 13:55 05/12/23 08:16 Medications Medications Current Medications Acetaminophen (Acetaminophen 325 Mg Tablet) 650 mg PO Q6H PRN PRN Reason: Headache/Pain Mild Scale (1-3) Last Admin: 05/15/23 20:46 Dose: 650 mg Al Hydroxide/Mg Hydroxide (Magnesium Hydrox/Alum Hydrox 30 Ml Oral.Susp) 30 ml PO Q6H PRN PRN Reason: Heartburn/Nausea Albuterol Sulfate (Albuterol Sulfate 90 Mcg 8 Gm Inhaler) 2 puff INHALE RQ6H PRN PRN Reason: Wheezing Atorvastatin Calcium (Atorvastatin Calcium 20 Mg Tablet) 20 mg PO BEDTIME [facility] Last Admin: 05/16/23 21:07 Dose: 20 mg Clonidine HCl (Clonidine Hcl 0.1 Mg Tablet) 0.1 mg PO DAILY [facility] Last Admin: 05/17/23 08:18 Dose: 0.1 mg Hydroxyzine HCl (Hydroxyzine Hcl 25 Mg Tablet) 25 mg PO Q6H PRN PRN Reason: Anxiety Last Admin: 05/16/23 21:08 Dose: 25 mg Ibuprofen (Ibuprofen 400 Mg Tablet) 400 mg PO Q6H PRN PRN Reason: moderate pain Last Admin: 05/16/23 21:08 Dose: 400 mg Lisinopril (Lisinopril 5 Mg Tablet) 5 mg PO BEDTIME [facility] Last Admin: 05/16/23 21:07 Dose: 5 mg Magnesium Hydroxide (Milk Of Magnesia 30 Ml Oral.Susp) 30 ml PO DAILY PRN PRN Reason: Constipation Metformin HCl (Metformin Hcl Er 500 Mg Tab.Er.24h) 500 mg PO DAILY [facility] Last Admin: 05/17/23 08:18 Dose: 500 mg Methadone HCl (Methadone Hcl 20 Mg/2 Ml Oral.Conc) 95 mg PO DAILY [facility] Last Admin: 05/17/23 08:18 Dose: 95 mg Nicotine (Nicotine 7 Mg Patch.Td24) 7 mg TRANSDERMA DAILY [facility] Last Admin: 05/17/23 08:18 Dose: 7 mg Olanzapine (Olanzapine 10 Mg Tablet) 20 mg PO BEDTIME [facility] Last Admin: 05/16/23 21:07 Dose: 20 mg Olanzapine (Olanzapine Odt 10 Mg Tab.Rapdis) 10 mg TRANSLINGU TID PRN PRN Reason: Psychosis Last Admin: 05/15/23 17:05 Dose: 10 mg Omeprazole (Omeprazole 20 Mg Capsule.Dr) 20 mg PO DAILY [facility] Last Admin: 05/17/23 08:18 Dose: 20 mg Sertraline HCl (Sertraline Hcl 25 Mg Tablet) 25 mg PO DAILY [facility] Last Admin: 05/17/23 08:18 Dose: 25 mg Trazodone HCl (Trazodone Hcl 50 Mg Tablet) 50 mg PO BEDTIME MRX1 PRN PRN Reason: Insomnia Last Admin: 05/16/23 23:18 Dose: 50 mg Allergies Allergies Allergy/AdvReac Type Severity Reaction Status Date / Time No Known Allergies Allergy Verified 05/10/23 12:32 Assessment & Plan Assessment & Plan (1) Acute psychosis: Status: Acute Code(s): F23 - Brief psychotic disorder Plan The patient is a 68-year-old male with a past history of psychosis and depression admitted for suicidal ideation with intent to overdose on heroin. The patient was recently admitted into the hospital and discharged with follow-up treatment but then he came at [place] with a plan to kill himself by overdose. Plan 1. Gather collateral information at this moment we have very few information regarding his prior treatment. 2. The patient is actively psychotic hearing voices with derogatory content he agreed to take Zyprexa 5 mg p.o. now on admission. 3. Blood work and medication management. 4. 5 minute checks. It was later changed to 15 minute checks since the patient was not actively suicidal. 5. Reassessment with results. 6. Increase Zyprexa up to 20 mg p.o. q.h.s. to target psychosis on May 13. I lowered back to 15 mg on May 17. 7. Start Zoloft 25 mg p.o. q.a.m. to target depression. 8. Increased p.r.n. up to 10 mg p.o. b.i.d. to target psychosis. 9. Add PRN Ibuprofen. Add nicotine patch at patient request. 10. Keep Seroquel 25 p.o. b.i.d. even though he is over-sedated during the day. Reason for continued inpatient stay Substantial Risk for: inability to function, rapid decompensation and med/psych decompensation Time Spent With Patient Time: Total time managing care of this patient today __20__ minutes.
[2023-05-17 18:00] VITALS: BP 137/65; PULSE 71; RESP 18; TEMP 36.1; O2SAT 95
[2023-05-17] MEDS: Acetaminophen 325 MG TABLET 650 MG PO (18:41)
[2023-05-17] MEDS: Atorvastatin Calcium 20 MG TABLET PO (20:01)
[2023-05-17] MEDS: Ibuprofen 400 MG TABLET PO (20:01)
[2023-05-17] MEDS: hydrOXYzine HCL 25 MG TABLET PO (20:02)
[2023-05-17] MEDS: OLANZapine 10 MG TABLET 20 MG PO (20:02)
[2023-05-17] MEDS: traZODone HCL 50 MG TABLET PO ×2 (20:03→22:12)
[2023-05-17] MEDS: lisinopriL 5 MG TABLET PO (20:03)
[2023-05-18 07:55] VITALS: BP 138/62; PULSE 69; RESP 20; TEMP 36.8; O2SAT 94
[2023-05-18] MEDS: methADONE HCl 20 MG/2 ML ORAL.CONC 95 MG PO (08:06)
[2023-05-18] MEDS: Nicotine 7 MG PATCH.TD24 TRANSDERMA (08:06)
[2023-05-18] MEDS: Omeprazole 20 MG CAPSULE.DR PO (08:07)
[2023-05-18] MEDS: Sertraline HCL 25 MG TABLET PO (08:07)
[2023-05-18] MEDS: metFORMIN HCl ER 500 MG TAB.ER.24H PO (08:07)
[2023-05-18] MEDS: cloNIDine HCL 0.1 MG TABLET PO (08:07)
[2023-05-18] MEDS: OLANZapine ODT 10 MG TAB.RAPDIS TRANSLINGU (13:02)
--- NOTE | 2023-05-18 15:18 | P.PNPSI_ITS ---
Subjective Subjective Date of Service: 05/18/23 Reason For Visit: SI Subjective Notes: Conditional Voluntary Interim History: The nursing staff reported the patient had been compliant with treatment, he slept only 4 hours. He complained of numbness in his hands over adding gabapentin. On interview the patient reported that he is doing well, waiting for placement. Mental Status Exam Mental Status Exam Patient Appearance: Appropriate Patient Orientation: Person and Situation Level of Consciousness: Awake and Appropriate Patient Behavior: Guarded and Passive Mood Description: Withdrawn Affect Description: Constricted Patient Cognition Impaired: Yes Ability to Follow Directions: Good Speech Pattern: Clear Hallucinations: Auditory Delusions: Paranoid Ideation Thought Process: Distracted and Slowed Thinking Thought Content: positive for [place] and positive for Circumstantial Judgement: Fair Diagnostics Vital Signs (24Hr): Vital Signs - 24 hr 05/17/23 18:00 05/18/23 07:55 Temperature 97 F 98.2 F Pulse Rate 71 69 Respiratory Rate 18 20 Blood Pressure 137/65 138/62 Pulse Oximetry 95 94 Oxygen Delivery Method Room Air Room Air BMI result Body Mass Index 34.1 Labs 05/10/23 13:55 05/12/23 08:16 Medications Medications Current Medications Acetaminophen (Acetaminophen 325 Mg Tablet) 650 mg PO Q6H PRN PRN Reason: Headache/Pain Mild Scale (1-3) Last Admin: 05/17/23 18:41 Dose: 650 mg Al Hydroxide/Mg Hydroxide (Magnesium Hydrox/Alum Hydrox 30 Ml Oral.Susp) 30 ml PO Q6H PRN PRN Reason: Heartburn/Nausea Albuterol Sulfate (Albuterol Sulfate 90 Mcg 8 Gm Inhaler) 2 puff INHALE RQ6H PRN PRN Reason: Wheezing Atorvastatin Calcium (Atorvastatin Calcium 20 Mg Tablet) 20 mg PO BEDTIME [facility] Last Admin: 05/17/23 20:01 Dose: 20 mg Clonidine HCl (Clonidine Hcl 0.1 Mg Tablet) 0.1 mg PO DAILY [facility] Last Admin: 05/18/23 08:07 Dose: 0.1 mg Gabapentin (Gabapentin 100 Mg Capsule) 100 mg PO TID [facility] Hydroxyzine HCl (Hydroxyzine Hcl 25 Mg Tablet) 25 mg PO Q6H PRN PRN Reason: Anxiety Last Admin: 05/17/23 20:02 Dose: 25 mg Ibuprofen (Ibuprofen 400 Mg Tablet) 400 mg PO Q6H PRN PRN Reason: moderate pain Last Admin: 05/17/23 20:01 Dose: 400 mg Lisinopril (Lisinopril 5 Mg Tablet) 5 mg PO BEDTIME [facility] Last Admin: 05/17/23 20:03 Dose: 5 mg Magnesium Hydroxide (Milk Of Magnesia 30 Ml Oral.Susp) 30 ml PO DAILY PRN PRN Reason: Constipation Metformin HCl (Metformin Hcl Er 500 Mg Tab.Er.24h) 500 mg PO DAILY [facility] Last Admin: 05/18/23 08:07 Dose: 500 mg Methadone HCl (Methadone Hcl 20 Mg/2 Ml Oral.Conc) 95 mg PO DAILY [facility] Last Admin: 05/18/23 08:06 Dose: 95 mg Nicotine (Nicotine 7 Mg Patch.Td24) 7 mg TRANSDERMA DAILY [facility] Last Admin: 05/18/23 08:06 Dose: 7 mg Olanzapine (Olanzapine Odt 10 Mg Tab.Rapdis) 10 mg TRANSLINGU TID PRN PRN Reason: Psychosis Last Admin: 05/18/23 13:02 Dose: 10 mg Olanzapine (Olanzapine 7.5 Mg Tablet) 15 mg PO BEDTIME [facility] Omeprazole (Omeprazole 20 Mg Capsule.Dr) 20 mg PO DAILY [facility] Last Admin: 05/18/23 08:07 Dose: 20 mg Sertraline HCl (Sertraline Hcl 25 Mg Tablet) 25 mg PO DAILY [facility] Last Admin: 05/18/23 08:07 Dose: 25 mg Trazodone HCl (Trazodone Hcl 50 Mg Tablet) 50 mg PO BEDTIME MRX1 PRN PRN Reason: Insomnia Last Admin: 05/17/23 22:12 Dose: 50 mg Allergies Allergies Allergy/AdvReac Type Severity Reaction Status Date / Time No Known Allergies Allergy Verified 05/10/23 12:32 Assessment & Plan Assessment & Plan (1) Acute psychosis: Status: Acute Code(s): F23 - Brief psychotic disorder Plan The patient is a 68-year-old male with a past history of psychosis and depression admitted for suicidal ideation with intent to overdose on heroin. The patient was recently admitted into the hospital and discharged with follow-up treatment but then he came at [place] with a plan to kill himself by overdose. Plan 1. Gather collateral information at this moment we have very few information regarding his prior treatment. 2. The patient is actively psychotic hearing voices with derogatory content he agreed to take Zyprexa 5 mg p.o. now on admission. 3. Blood work and medication management. 4. 5 minute checks. It was later changed to 15 minute checks since the patient was not actively suicidal. 5. Reassessment with results. 6. Increase Zyprexa up to 20 mg p.o. q.h.s. to target psychosis on May 13. I lowered back to 15 mg on May 17. 7. Start Zoloft 25 mg p.o. q.a.m. to target depression. 8. Increased p.r.n. up to 10 mg p.o. b.i.d. to target psychosis. 9. Add PRN Ibuprofen. Add nicotine patch at patient request. 10. Keep Seroquel 25 p.o. b.i.d. even though he is over-sedated during the day. 11. Start gabapentin 100 mg p.o. t.i.d. Reason for continued inpatient stay Substantial Risk for: inability to function, rapid decompensation and med/psych decompensation Time Spent With Patient Time: Total time managing care of this patient today __20__ minutes.
[2023-05-18] MEDS: Gabapentin 100 MG CAPSULE PO ×2 (15:21→20:29)
[2023-05-18 20:15] VITALS: BP 133/68; PULSE 84; RESP 18; TEMP 36.4; O2SAT 94
[2023-05-18] MEDS: OLANZapine 7.5 MG TABLET 15 MG PO (20:29)
[2023-05-18] MEDS: lisinopriL 5 MG TABLET PO (20:30)
[2023-05-18] MEDS: Atorvastatin Calcium 20 MG TABLET PO (20:30)
[2023-05-18] MEDS: traZODone HCL 50 MG TABLET PO (20:30)
[2023-05-19 07:55] VITALS: BP 125/62; PULSE 77; RESP 18; TEMP 36.6; O2SAT 94
[2023-05-19] MEDS: metFORMIN HCl ER 500 MG TAB.ER.24H PO (08:28)
[2023-05-19] MEDS: Omeprazole 20 MG CAPSULE.DR PO (08:28)
[2023-05-19] MEDS: cloNIDine HCL 0.1 MG TABLET PO (08:29)
[2023-05-19] MEDS: Gabapentin 100 MG CAPSULE PO (08:29)
[2023-05-19] MEDS: methADONE HCl 20 MG/2 ML ORAL.CONC 95 MG PO (08:29)
[2023-05-19] MEDS: Sertraline HCL 25 MG TABLET PO (08:29)
[2023-05-19] MEDS: Acetaminophen 325 MG TABLET 650 MG PO (11:16)
--- NOTE | 2023-05-19 12:54 | HO.PSYCHPN ---
Subjective Subjective Date of Service: 05/19/23 Reason For Visit: SI Subjective Notes: Conditional Voluntary Interim History: The nursing staff reported the patient has been quiet and pleasant, slept 4 hours and he had been good appetite. The transition social worker reported that the rehabilitation caseworker of other protective Services informed that he is in the [place] process and we were will come and help him out. On interview the patient denies new symptoms he agreed increase all of up to 50 mg p.o. q.a.m. to target anxiety, remains internally preoccupied but less auditory hallucinations. Mental Status Exam Mental Status Exam Patient Appearance: Appropriate Patient Orientation: Person and Situation Level of Consciousness: Awake and Appropriate Patient Behavior: Guarded and Passive Mood Description: Calm Affect Description: Blunted Patient Cognition Impaired: Yes Ability to Follow Directions: Good Speech Pattern: Clear Hallucinations: Auditory Delusions: Paranoid Ideation Thought Process: Distracted and Linear Thought Content: positive for [place], positive for Poverty of Content and positive for Thought Blocking Judgement: Fair Diagnostics Vital Signs (24Hr): Vital Signs - 24 hr 05/18/23 20:15 05/19/23 07:55 Temperature 97.6 F 97.8 F Pulse Rate 84 77 Respiratory Rate 18 18 Blood Pressure 133/68 125/62 Pulse Oximetry 94 94 Oxygen Delivery Method Room Air Room Air BMI result Body Mass Index 34.1 Labs 05/10/23 13:55 05/12/23 08:16 Medications Medications Current Medications Acetaminophen (Acetaminophen 325 Mg Tablet) 650 mg PO Q6H PRN PRN Reason: Headache/Pain Mild Scale (1-3) Last Admin: 05/19/23 11:16 Dose: 650 mg Al Hydroxide/Mg Hydroxide (Magnesium Hydrox/Alum Hydrox 30 Ml Oral.Susp) 30 ml PO Q6H PRN PRN Reason: Heartburn/Nausea Albuterol Sulfate (Albuterol Sulfate 90 Mcg 8 Gm Inhaler) 2 puff INHALE RQ6H PRN PRN Reason: Wheezing Atorvastatin Calcium (Atorvastatin Calcium 20 Mg Tablet) 20 mg PO BEDTIME [facility] Last Admin: 05/18/23 20:30 Dose: 20 mg Clonidine HCl (Clonidine Hcl 0.1 Mg Tablet) 0.1 mg PO DAILY [facility] Last Admin: 05/19/23 08:29 Dose: 0.1 mg Gabapentin (Gabapentin 100 Mg Capsule) 100 mg PO TID [facility] Last Admin: 05/19/23 08:29 Dose: 100 mg Hydroxyzine HCl (Hydroxyzine Hcl 25 Mg Tablet) 25 mg PO Q6H PRN PRN Reason: Anxiety Last Admin: 05/17/23 20:02 Dose: 25 mg Ibuprofen (Ibuprofen 400 Mg Tablet) 400 mg PO Q6H PRN PRN Reason: moderate pain Last Admin: 05/17/23 20:01 Dose: 400 mg Lisinopril (Lisinopril 5 Mg Tablet) 5 mg PO BEDTIME [facility] Last Admin: 05/18/23 20:30 Dose: 5 mg Magnesium Hydroxide (Milk Of Magnesia 30 Ml Oral.Susp) 30 ml PO DAILY PRN PRN Reason: Constipation Metformin HCl (Metformin Hcl Er 500 Mg Tab.Er.24h) 500 mg PO DAILY [facility] Last Admin: 05/19/23 08:28 Dose: 500 mg Methadone HCl (Methadone Hcl 20 Mg/2 Ml Oral.Conc) 95 mg PO DAILY [facility] Last Admin: 05/19/23 08:29 Dose: 95 mg Nicotine (Nicotine 7 Mg Patch.Td24) 7 mg TRANSDERMA DAILY [facility] Last Admin: 05/19/23 08:31 Dose: Not Given Olanzapine (Olanzapine Odt 10 Mg Tab.Rapdis) 10 mg TRANSLINGU TID PRN PRN Reason: Psychosis Last Admin: 05/18/23 13:02 Dose: 10 mg Olanzapine (Olanzapine 7.5 Mg Tablet) 15 mg PO BEDTIME [facility] Last Admin: 05/18/23 20:29 Dose: 15 mg Omeprazole (Omeprazole 20 Mg Capsule.Dr) 20 mg PO DAILY [facility] Last Admin: 05/19/23 08:28 Dose: 20 mg Sertraline HCl (Sertraline Hcl 50 Mg Tablet) 50 mg PO DAILY [facility] Trazodone HCl (Trazodone Hcl 50 Mg Tablet) 50 mg PO BEDTIME MRX1 PRN PRN Reason: Insomnia Last Admin: 05/18/23 20:30 Dose: 50 mg Allergies Allergies Allergy/AdvReac Type Severity Reaction Status Date / Time No Known Allergies Allergy Verified 05/10/23 12:32 Assessment & Plan Assessment & Plan (1) Acute psychosis: Status: Acute Code(s): F23 - Brief psychotic disorder Plan The patient is a 68-year-old male with a past history of psychosis and depression admitted for suicidal ideation with intent to overdose on heroin. The patient was recently admitted into the hospital and discharged with follow-up treatment but then he came at [place] with a plan to kill himself by overdose. Plan 1. Gather collateral information at this moment we have very few information regarding his prior treatment. 2. The patient is actively psychotic hearing voices with derogatory content he agreed to take Zyprexa 5 mg p.o. now on admission. 3. Blood work and medication management. 4. 5 minute checks. It was later changed to 15 minute checks since the patient was not actively suicidal. 5. Reassessment with results. 6. Increase Zyprexa up to 20 mg p.o. q.h.s. to target psychosis on May 13. I lowered back to 15 mg on May 17. 7. Start Zoloft 25 mg p.o. q.a.m. to target depression. We increased Zoloft up to 50 mg on May 19. 8. Increased p.r.n. up to 10 mg p.o. b.i.d. to target psychosis. 9. Add PRN Ibuprofen. Add nicotine patch at patient request. 10. Keep Seroquel 25 p.o. b.i.d. even though he is over-sedated during the day. 11. Start gabapentin 100 mg p.o. t.i.d., increase up to 200 mg po tid. Reason for continued inpatient stay Substantial Risk for: inability to function, rapid decompensation and med/psych decompensation Time Spent With Patient Time: Total time managing care of this patient today _20___ minutes.
[2023-05-19] MEDS: Gabapentin 100 MG CAPSULE 200 MG PO ×2 (15:11→20:12)
[2023-05-19 20:05] VITALS: BP 129/65; PULSE 73; RESP 18; TEMP 36.1; O2SAT 97
[2023-05-19] MEDS: OLANZapine 7.5 MG TABLET 15 MG PO (20:12)
[2023-05-19] MEDS: lisinopriL 5 MG TABLET PO (20:12)
[2023-05-19] MEDS: Atorvastatin Calcium 20 MG TABLET PO (20:12)
[2023-05-20 08:32] VITALS: BP 133/77; PULSE 72; RESP 18; TEMP 36.4; O2SAT 96
[2023-05-20] MEDS: Gabapentin 100 MG CAPSULE 200 MG PO (09:05)
[2023-05-20] MEDS: Omeprazole 20 MG CAPSULE.DR PO (09:05)
[2023-05-20] MEDS: Sertraline HCL 50 MG TABLET PO (09:06)
[2023-05-20] MEDS: Ibuprofen 400 MG TABLET PO ×2 (09:06→15:27)
[2023-05-20] MEDS: cloNIDine HCL 0.1 MG TABLET PO (09:06)
[2023-05-20] MEDS: metFORMIN HCl ER 500 MG TAB.ER.24H PO (09:06)
[2023-05-20] MEDS: methADONE HCl 20 MG/2 ML ORAL.CONC 95 MG PO (09:08)
[2023-05-20 11:22] VITALS: BMI 35.9
--- NOTE | 2023-05-20 13:36 | HO.PSYCHPN ---
Subjective Subjective Date of Service: 05/20/23 Reason For Visit: SI Subjective Notes: Conditional Voluntary Interim History: The nursing staff reported the patient had been compliant with treatment, slightly hypoactive but more reactive than before. The health social work professor reported the training generalist will try to help in avoid eviction. The occupational therapist reported that he scored 15/30 on the Winston and 4.0 on the Christos test. On interview the patient denies new symptoms, he admitted oversedation with Gabapentin 200 mg po tid. Mental Status Exam Mental Status Exam Patient Appearance: Well Grooomed and Appropriate Patient Orientation: Person and Situation Level of Consciousness: Awake and Appropriate Patient Behavior: Guarded and Passive Mood Description: Withdrawn and Constricted Affect Description: Blunted Patient Cognition Impaired: Yes Ability to Follow Directions: Good Speech Pattern: Clear Hallucinations: None Delusions: Not Present Thought Process: Distracted and Evasive Thought Content: positive for Hammond and positive for Circumstantial Judgement: Fair Diagnostics Vital Signs (24Hr): Vital Signs - 24 hr 05/19/23 20:05 05/20/23 08:32 Temperature 97.0 F 97.6 F Pulse Rate 73 72 Respiratory Rate 18 18 Blood Pressure 129/65 133/77 Pulse Oximetry 97 96 Oxygen Delivery Method Room Air Room Air BMI result Body Mass Index 35.9 Labs 05/10/23 13:55 05/12/23 08:16 Medications Medications Current Medications Acetaminophen (Acetaminophen 325 Mg Tablet) 650 mg PO Q6H PRN PRN Reason: Headache/Pain Mild Scale (1-3) Last Admin: 05/19/23 11:16 Dose: 650 mg Al Hydroxide/Mg Hydroxide (Magnesium Hydrox/Alum Hydrox 30 Ml Oral.Susp) 30 ml PO Q6H PRN PRN Reason: Heartburn/Nausea Albuterol Sulfate (Albuterol Sulfate 90 Mcg 8 Gm Inhaler) 2 puff INHALE RQ6H PRN PRN Reason: Wheezing Atorvastatin Calcium (Atorvastatin Calcium 20 Mg Tablet) 20 mg PO BEDTIME [facility] Last Admin: 05/19/23 20:12 Dose: 20 mg Clonidine HCl (Clonidine Hcl 0.1 Mg Tablet) 0.1 mg PO DAILY [facility] Last Admin: 05/20/23 09:06 Dose: 0.1 mg Gabapentin (Gabapentin 100 Mg Capsule) 200 mg PO TID [facility] Last Admin: 05/20/23 09:05 Dose: 200 mg Hydroxyzine HCl (Hydroxyzine Hcl 25 Mg Tablet) 25 mg PO Q6H PRN PRN Reason: Anxiety Last Admin: 05/17/23 20:02 Dose: 25 mg Ibuprofen (Ibuprofen 400 Mg Tablet) 400 mg PO Q6H PRN PRN Reason: moderate pain Last Admin: 05/20/23 09:06 Dose: 400 mg Lisinopril (Lisinopril 5 Mg Tablet) 5 mg PO BEDTIME [facility] Last Admin: 05/19/23 20:12 Dose: 5 mg Magnesium Hydroxide (Milk Of Magnesia 30 Ml Oral.Susp) 30 ml PO DAILY PRN PRN Reason: Constipation Metformin HCl (Metformin Hcl Er 500 Mg Tab.Er.24h) 500 mg PO DAILY [facility] Last Admin: 05/20/23 09:06 Dose: 500 mg Methadone HCl (Methadone Hcl 20 Mg/2 Ml Oral.Conc) 95 mg PO DAILY [facility] Last Admin: 05/20/23 09:08 Dose: 95 mg Nicotine (Nicotine 7 Mg Patch.Td24) 7 mg TRANSDERMA DAILY [facility] Last Admin: 05/20/23 09:07 Dose: Not Given Olanzapine (Olanzapine Odt 10 Mg Tab.Rapdis) 10 mg TRANSLINGU TID PRN PRN Reason: Psychosis Last Admin: 05/18/23 13:02 Dose: 10 mg Olanzapine (Olanzapine 7.5 Mg Tablet) 15 mg PO BEDTIME [facility] Last Admin: 05/19/23 20:12 Dose: 15 mg Omeprazole (Omeprazole 20 Mg Capsule.Dr) 20 mg PO DAILY [facility] Last Admin: 05/20/23 09:05 Dose: 20 mg Sertraline HCl (Sertraline Hcl 50 Mg Tablet) 50 mg PO DAILY [facility] Last Admin: 05/20/23 09:06 Dose: 50 mg Trazodone HCl (Trazodone Hcl 50 Mg Tablet) 50 mg PO BEDTIME [facility]X1 PRN PRN Reason: Insomnia Last Admin: 05/18/23 20:30 Dose: 50 mg Allergies Allergies Allergy/AdvReac Type Severity Reaction Status Date / Time No Known Allergies Allergy Verified 05/10/23 12:32 Assessment & Plan Assessment & Plan (1) Acute psychosis: Status: Acute Code(s): F23 - Brief psychotic disorder Plan The patient is a 68-year-old male with a past history of psychosis and depression admitted for suicidal ideation with intent to overdose on heroin. The patient was recently admitted into the hospital and discharged with follow-up treatment but then he came at [facility] with a plan to kill himself by overdose. Plan 1. Gather collateral information at this moment we have very few information regarding his prior treatment. 2. The patient is actively psychotic hearing voices with derogatory content he agreed to take Zyprexa 5 mg p.o. now on admission. 3. Blood work and medication management. 4. 5 minute checks. It was later changed to 15 minute checks since the patient was not actively suicidal. 5. Reassessment with results. 6. Increase Zyprexa up to 20 mg p.o. q.h.s. to target psychosis on May 13. I lowered back to 15 mg on May 17. 7. Start Zoloft 25 mg p.o. q.a.m. to target depression. We increased Zoloft up to 50 mg on May 19. 8. Increased p.r.n. up to 10 mg p.o. b.i.d. to target psychosis. 9. Add PRN Ibuprofen. Add nicotine patch at patient request. 10. Keep Seroquel 25 p.o. b.i.d. even though he is over-sedated during the day. 11. Start gabapentin 100 mg p.o. t.i.d., increase up to 200 mg po tid but we weill lower to 100 mg po tid due to oversedation on 05/20. Reason for continued inpatient stay Substantial Risk for: inability to function, rapid decompensation and med/psych decompensation Time Spent With Patient Time: Total time managing care of this patient today __20__ minutes.
[2023-05-20] MEDS: Gabapentin 100 MG CAPSULE PO ×2 (14:43→20:10)
[2023-05-20 20:09] VITALS: BP 164/72; PULSE 79; RESP 18; TEMP 36.4; O2SAT 93
[2023-05-20] MEDS: lisinopriL 5 MG TABLET PO (20:10)
[2023-05-20] MEDS: OLANZapine 7.5 MG TABLET 15 MG PO (20:10)
[2023-05-20] MEDS: Atorvastatin Calcium 20 MG TABLET PO (20:10)
[2023-05-21 08:00] VITALS: BP 173/74; PULSE 80; RESP 20; TEMP 36.6; O2SAT 94
[2023-05-21] MEDS: methADONE HCl 20 MG/2 ML ORAL.CONC 95 MG PO (08:17)
[2023-05-21] MEDS: metFORMIN HCl ER 500 MG TAB.ER.24H PO (08:18)
[2023-05-21] MEDS: cloNIDine HCL 0.1 MG TABLET PO (08:18)
[2023-05-21] MEDS: Gabapentin 100 MG CAPSULE PO ×3 (08:18→20:18)
[2023-05-21] MEDS: Omeprazole 20 MG CAPSULE.DR PO (08:18)
[2023-05-21] MEDS: Sertraline HCL 50 MG TABLET PO (08:18)
[2023-05-21 08:21] LABS: Creatinine Clr Calc Pharmacy 95.9; Estimated Glomerular Filt Rate > 60
[2023-05-21] MEDS: OLANZapine ODT 10 MG TAB.RAPDIS TRANSLINGU (11:04)
--- NOTE | 2023-05-21 15:23 | P.PNPSI_ITS ---
Subjective Subjective Date of Service: 05/21/23 Reason For Visit: SI Subjective Notes: Conditional Voluntary Interim History: The nursing staff reported the patient had been compliant with treatment, he reports some nightmares at night. On interview the patient denies exacerbation of psychosis. Mental Status Exam Mental Status Exam Patient Appearance: Well Grooomed and Appropriate Patient Orientation: Person, Place and Situation Level of Consciousness: Awake and Appropriate Patient Behavior: Guarded and Passive Mood Description: Withdrawn Affect Description: Constricted Patient Cognition Impaired: Yes Ability to Follow Directions: Good Speech Pattern: Clear Hallucinations: None Delusions: Paranoid Ideation Thought Process: Distracted Judgement: Fair Diagnostics Vital Signs (24Hr): Vital Signs - 24 hr 05/20/23 20:09 05/21/23 08:00 Temperature 97.6 F 97.9 F Pulse Rate 79 80 Respiratory Rate 18 20 Blood Pressure 164/72 H 173/74 H Pulse Oximetry 93 94 Oxygen Delivery Method Room Air Room Air BMI result Body Mass Index 35.9 Labs 05/10/23 13:55 05/21/23 07:49 Labs: Laboratory Results - last 48 hr 05/21/23 07:49 Creatinine 1.05 Estim Creat Clear Calc 95.9 Estimated GFR > 60 Medications Medications Current Medications Acetaminophen (Acetaminophen 325 Mg Tablet) 650 mg PO Q6H PRN PRN Reason: Headache/Pain Mild Scale (1-3) Last Admin: 05/19/23 11:16 Dose: 650 mg Al Hydroxide/Mg Hydroxide (Magnesium Hydrox/Alum Hydrox 30 Ml Oral.Susp) 30 ml PO Q6H PRN PRN Reason: Heartburn/Nausea Albuterol Sulfate (Albuterol Sulfate 90 Mcg 8 Gm Inhaler) 2 puff INHALE RQ6H PRN PRN Reason: Wheezing Atorvastatin Calcium (Atorvastatin Calcium 20 Mg Tablet) 20 mg PO BEDTIME [facility] Last Admin: 05/20/23 20:10 Dose: 20 mg Clonidine HCl (Clonidine Hcl 0.1 Mg Tablet) 0.1 mg PO DAILY [facility] Last Admin: 05/21/23 08:18 Dose: 0.1 mg Gabapentin (Gabapentin 100 Mg Capsule) 100 mg PO TID [facility] Last Admin: 05/21/23 14:48 Dose: 100 mg Hydroxyzine HCl (Hydroxyzine Hcl 25 Mg Tablet) 25 mg PO Q6H PRN PRN Reason: Anxiety Last Admin: 05/17/23 20:02 Dose: 25 mg Ibuprofen (Ibuprofen 400 Mg Tablet) 400 mg PO Q6H PRN PRN Reason: moderate pain Last Admin: 05/20/23 15:27 Dose: 400 mg Lisinopril (Lisinopril 5 Mg Tablet) 5 mg PO BEDTIME [facility] Last Admin: 05/20/23 20:10 Dose: 5 mg Magnesium Hydroxide (Milk Of Magnesia 30 Ml Oral.Susp) 30 ml PO DAILY PRN PRN Reason: Constipation Metformin HCl (Metformin Hcl Er 500 Mg Tab.Er.24h) 500 mg PO DAILY [facility] Last Admin: 05/21/23 08:18 Dose: 500 mg Methadone HCl (Methadone Hcl 20 Mg/2 Ml Oral.Conc) 95 mg PO DAILY [facility] Last Admin: 05/21/23 08:17 Dose: 95 mg Nicotine (Nicotine 7 Mg Patch.Td24) 7 mg TRANSDERMA DAILY [facility] Last Admin: 05/21/23 08:18 Dose: Not Given Olanzapine (Olanzapine Odt 10 Mg Tab.Rapdis) 10 mg TRANSLINGU TID PRN PRN Reason: Psychosis Last Admin: 05/21/23 11:04 Dose: 10 mg Olanzapine (Olanzapine 7.5 Mg Tablet) 15 mg PO BEDTIME [facility] Last Admin: 05/20/23 20:10 Dose: 15 mg Omeprazole (Omeprazole 20 Mg Capsule.Dr) 20 mg PO DAILY [facility] Last Admin: 05/21/23 08:18 Dose: 20 mg Sertraline HCl (Sertraline Hcl 50 Mg Tablet) 50 mg PO DAILY [facility] Last Admin: 05/21/23 08:18 Dose: 50 mg Trazodone HCl (Trazodone Hcl 50 Mg Tablet) 50 mg PO BEDTIME MRX1 PRN PRN Reason: Insomnia Last Admin: 05/18/23 20:30 Dose: 50 mg Allergies Allergies Allergy/AdvReac Type Severity Reaction Status Date / Time No Known Allergies Allergy Verified 05/10/23 12:32 Assessment & Plan Assessment & Plan (1) Acute psychosis: Status: Acute Code(s): F23 - Brief psychotic disorder Plan The patient is a 68-year-old male with a past history of psychosis and depression admitted for suicidal ideation with intent to overdose on heroin. The patient was recently admitted into the hospital and discharged with follow-up treatment but then he came at [place] with a plan to kill himself by overdose. Plan 1. Gather collateral information at this moment we have very few information regarding his prior treatment. 2. The patient is actively psychotic hearing voices with derogatory content he agreed to take Zyprexa 5 mg p.o. now on admission. 3. Blood work and medication management. 4. 5 minute checks. It was later changed to 15 minute checks since the patient was not actively suicidal. 5. Reassessment with results. 6. Increase Zyprexa up to 20 mg p.o. q.h.s. to target psychosis on May 13. I lowered back to 15 mg on May 17. 7. Start Zoloft 25 mg p.o. q.a.m. to target depression. We increased Zoloft up to 50 mg on May 19. 8. Increased p.r.n. up to 10 mg p.o. b.i.d. to target psychosis. 9. Add PRN Ibuprofen. Add nicotine patch at patient request. 10. Keep Seroquel 25 p.o. b.i.d. even though he is over-sedated during the day. 11. Start gabapentin 100 mg p.o. t.i.d., increase up to 200 mg po tid but we weill lower to 100 mg po tid due to oversedation on 05/20. Reason for continued inpatient stay Substantial Risk for: inability to function, rapid decompensation and med/psych decompensation Time Spent With Patient Time: Total time managing care of this patient today ___20_ minutes.
[2023-05-21 18:00] VITALS: BP 151/72; PULSE 78; RESP 18; TEMP 36.4; O2SAT 94
[2023-05-21] MEDS: Atorvastatin Calcium 20 MG TABLET PO (20:17)
[2023-05-21] MEDS: lisinopriL 5 MG TABLET PO (20:18)
[2023-05-21] MEDS: OLANZapine 7.5 MG TABLET 15 MG PO (20:18)
[2023-05-21] MEDS: Ibuprofen 400 MG TABLET PO (20:23)
[2023-05-21] MEDS: traZODone HCL 50 MG TABLET PO (22:19)
[2023-05-21] MEDS: hydrOXYzine HCL 25 MG TABLET PO (22:19)
[2023-05-22] MEDS: hydrOXYzine HCL 25 MG TABLET PO ×2 (04:51→20:16)
[2023-05-22 08:10] VITALS: BP 116/56; PULSE 62; RESP 20; TEMP 36.7; O2SAT 94
[2023-05-22] MEDS: Gabapentin 100 MG CAPSULE PO ×3 (08:17→20:10)
[2023-05-22] MEDS: Sertraline HCL 50 MG TABLET PO (08:17)
[2023-05-22] MEDS: metFORMIN HCl ER 500 MG TAB.ER.24H PO (08:17)
[2023-05-22] MEDS: Omeprazole 20 MG CAPSULE.DR PO (08:17)
[2023-05-22] MEDS: cloNIDine HCL 0.1 MG TABLET PO (08:18)
[2023-05-22] MEDS: methADONE HCl 20 MG/2 ML ORAL.CONC 95 MG PO (08:19)
[2023-05-22] MEDS: Ibuprofen 400 MG TABLET PO ×2 (09:20→20:15)
--- NOTE | 2023-05-22 09:56 | HO.PSYCHPN ---
Subjective Subjective Date of Service: 05/22/23 Reason For Visit: SI Subjective Notes: Conditional Voluntary Interim History: Pt reports his roommate kept him up. He reports feeling tired. He denies SI/HI. No signs of psychosis. Pt is visible on the unit and social with select peer. He reports hip and shoulder pain related to arthritis. Pt reports some stiffness in AM. No behavioral concerns. Medication Compliance: Yes Review of Systems Review of Systems Review of systems: General: Patient denies any fever chills recent illness or falls Musculoskeletal: Denies back pain or body aches or other injuries HEENT: denies headache, runny nose, ear pain Respiratory: denies shortness of breath, cough Cardiovascular: no chest pain or palpitations : denies dysuria, frequency Abdomen: no nausea vomiting denies abdominal pain Extremities: no swelling, no pain Skin: no diaphoresis Yes all other systems are reviewed and are negative Constitutional: Reports body ache(s) Mental Status Exam Mental Status Exam Patient Appearance: Well Grooomed and Appropriate Patient Orientation: Person and Situation Level of Consciousness: Awake and Appropriate Patient Behavior: Guarded and Passive Mood Description: Withdrawn and Constricted Affect Description: Blunted Patient Cognition Impaired: Yes Ability to Follow Directions: Good Speech Pattern: Clear Memory Description: Intact Diagnostics Vital Signs (24Hr): Vital Signs - 24 hr 05/21/23 18:00 05/22/23 08:10 Temperature 97.6 F 98.0 F Pulse Rate 78 62 Respiratory Rate 18 20 Blood Pressure 151/72 H 116/56 L Pulse Oximetry 94 94 Oxygen Delivery Method Room Air Room Air BMI result Body Mass Index 35.9 Labs 05/10/23 13:55 05/21/23 07:49 Labs: Laboratory Results - last 48 hr 05/21/23 07:49 Creatinine 1.05 Estim Creat Clear Calc 95.9 Estimated GFR > 60 Medications Medications Current Medications Acetaminophen (Acetaminophen 325 Mg Tablet) 650 mg PO Q6H PRN PRN Reason: Headache/Pain Mild Scale (1-3) Last Admin: 05/19/23 11:16 Dose: 650 mg Al Hydroxide/Mg Hydroxide (Magnesium Hydrox/Alum Hydrox 30 Ml Oral.Susp) 30 ml PO Q6H PRN PRN Reason: Heartburn/Nausea Albuterol Sulfate (Albuterol Sulfate 90 Mcg 8 Gm Inhaler) 2 puff INHALE RQ6H PRN PRN Reason: Wheezing Atorvastatin Calcium (Atorvastatin Calcium 20 Mg Tablet) 20 mg PO BEDTIME [facility] Last Admin: 05/21/23 20:17 Dose: 20 mg Clonidine HCl (Clonidine Hcl 0.1 Mg Tablet) 0.1 mg PO DAILY [facility] Last Admin: 05/22/23 08:18 Dose: 0.1 mg Gabapentin (Gabapentin 100 Mg Capsule) 100 mg PO TID [facility] Last Admin: 05/22/23 08:17 Dose: 100 mg Hydroxyzine HCl (Hydroxyzine Hcl 25 Mg Tablet) 25 mg PO Q6H PRN PRN Reason: Anxiety Last Admin: 05/22/23 04:51 Dose: 25 mg Ibuprofen (Ibuprofen 400 Mg Tablet) 400 mg PO Q6H PRN PRN Reason: moderate pain Last Admin: 05/22/23 09:20 Dose: 400 mg Lisinopril (Lisinopril 5 Mg Tablet) 5 mg PO BEDTIME [facility] Last Admin: 05/21/23 20:18 Dose: 5 mg Magnesium Hydroxide (Milk Of Magnesia 30 Ml Oral.Susp) 30 ml PO DAILY PRN PRN Reason: Constipation Metformin HCl (Metformin Hcl Er 500 Mg Tab.Er.24h) 500 mg PO DAILY [facility] Last Admin: 05/22/23 08:17 Dose: 500 mg Methadone HCl (Methadone Hcl 20 Mg/2 Ml Oral.Conc) 95 mg PO DAILY [facility] Last Admin: 05/22/23 08:19 Dose: 95 mg Nicotine (Nicotine 7 Mg Patch.Td24) 7 mg TRANSDERMA DAILY [facility] Last Admin: 05/22/23 08:19 Dose: Not Given Olanzapine (Olanzapine Odt 10 Mg Tab.Rapdis) 10 mg TRANSLINGU TID PRN PRN Reason: Psychosis Last Admin: 05/21/23 11:04 Dose: 10 mg Olanzapine (Olanzapine 7.5 Mg Tablet) 15 mg PO BEDTIME [facility] Last Admin: 05/21/23 20:18 Dose: 15 mg Omeprazole (Omeprazole 20 Mg Capsule.Dr) 20 mg PO DAILY [facility] Last Admin: 05/22/23 08:17 Dose: 20 mg Sertraline HCl (Sertraline Hcl 50 Mg Tablet) 50 mg PO DAILY [facility] Last Admin: 05/22/23 08:17 Dose: 50 mg Trazodone HCl (Trazodone Hcl 50 Mg Tablet) 50 mg PO BEDTIME [facility]X1 PRN PRN Reason: Insomnia Last Admin: 05/21/23 22:19 Dose: 50 mg Allergies Allergies Allergy/AdvReac Type Severity Reaction Status Date / Time No Known Allergies Allergy Verified 05/10/23 12:32 Assessment & Plan Assessment & Plan (1) Acute psychosis: Status: Acute Code(s): F23 - Brief psychotic disorder Plan The patient is a 68-year-old male with a past history of psychosis and depression admitted for suicidal ideation with intent to overdose on heroin. The patient was recently admitted into the hospital and discharged with follow-up treatment but then he came at [place] with a plan to kill himself by overdose. Plan 1. Gather collateral information at this moment we have very few information regarding his prior treatment. 2. The patient is actively psychotic hearing voices with derogatory content he agreed to take Zyprexa 5 mg p.o. now on admission. 3. Blood work and medication management. 4. 5 minute checks. It was later changed to 15 minute checks since the patient was not actively suicidal. 5. Reassessment with results. 6. Increase Zyprexa up to 20 mg p.o. q.h.s. to target psychosis on May 13. I lowered back to 15 mg on May 17. 7. Start Zoloft 25 mg p.o. q.a.m. to target depression. We increased Zoloft up to 50 mg on May 19. 8. Increased p.r.n. up to 10 mg p.o. b.i.d. to target psychosis. 9. Add PRN Ibuprofen. Add nicotine patch at patient request. 10. Keep Seroquel 25 p.o. b.i.d. even though he is over-sedated during the day. 11. Start gabapentin 100 mg p.o. t.i.d., increase up to 200 mg po tid but we weill lower to 100 mg po tid due to oversedation on 05/20. 05/22 continue tx. Reason for continued inpatient stay Substantial Risk for: inability to function Time Spent With Patient Time: Total time managing care of this patient today ____ minutes.
[2023-05-22 18:00] VITALS: BP 140/61; PULSE 66; RESP 20; TEMP 36.4; O2SAT 94
[2023-05-22] MEDS: Atorvastatin Calcium 20 MG TABLET PO (20:10)
[2023-05-22] MEDS: lisinopriL 5 MG TABLET PO (20:11)
[2023-05-22] MEDS: OLANZapine 7.5 MG TABLET 15 MG PO (20:11)
[2023-05-22] MEDS: traZODone HCL 50 MG TABLET PO (20:15)
[2023-05-23 08:10] VITALS: BP 122/60; PULSE 61; RESP 20; TEMP 36.5; O2SAT 97
[2023-05-23] MEDS: cloNIDine HCL 0.1 MG TABLET PO (08:13)
[2023-05-23] MEDS: Sertraline HCL 50 MG TABLET PO (08:14)
[2023-05-23] MEDS: Omeprazole 20 MG CAPSULE.DR PO (08:14)
[2023-05-23] MEDS: metFORMIN HCl ER 500 MG TAB.ER.24H PO (08:14)
[2023-05-23] MEDS: Gabapentin 100 MG CAPSULE PO ×3 (08:14→20:19)
[2023-05-23] MEDS: methADONE HCl 20 MG/2 ML ORAL.CONC 95 MG PO (08:18)
[2023-05-23] MEDS: Ibuprofen 400 MG TABLET PO (11:44)
--- NOTE | 2023-05-23 14:06 | P.PNPSI_ITS ---
Subjective Subjective Date of Service: 05/23/23 Reason For Visit: SI Subjective Notes: Conditional Voluntary Interim History: He continues to report feeling tired. He does report sleeping better last night but still roommate wakes him up. He denies SI/HI. No signs of psychosis. Pt is visible on the unit and social with select peer. He reports hip and shoulder norma n related to arthritis. Pt reports some stiffness in AM. No behavioral concerns. Review of Systems Review of Systems Review of systems: General: Patient denies any fever chills recent illness or falls Musculoskeletal: Denies back pain or body aches or other injuries HEENT: denies headache, runny nose, ear pain Respiratory: denies shortness of breath, cough Cardiovascular: no chest pain or palpitations : denies dysuria, frequency Abdomen: no nausea vomiting denies abdominal pain Extremities: no swelling, no pain Skin: no diaphoresis Yes all other systems are reviewed and are negative Constitutional: Reports body ache(s) Mental Status Exam Mental Status Exam Patient Appearance: Well Grooomed and Appropriate Patient Orientation: Person and Situation Level of Consciousness: Awake and Appropriate Patient Behavior: Guarded and Passive Mood Description: Withdrawn and Constricted Affect Description: Blunted Patient Cognition Impaired: Yes Ability to Follow Directions: Good Speech Pattern: Clear Memory Description: Intact Diagnostics Vital Signs (24Hr): Vital Signs - 24 hr 05/22/23 18:00 05/23/23 08:10 Temperature 97.6 F 97.7 F Pulse Rate 66 61 Respiratory Rate 20 20 Blood Pressure 140/61 H 122/60 Pulse Oximetry 94 97 Oxygen Delivery Method Room Air Room Air BMI result Body Mass Index 35.9 Labs 05/10/23 13:55 05/21/23 07:49 Medications Medications Current Medications Acetaminophen (Acetaminophen 325 Mg Tablet) 650 mg PO Q6H PRN PRN Reason: Headache/Pain Mild Scale (1-3) Last Admin: 05/19/23 11:16 Dose: 650 mg Al Hydroxide/Mg Hydroxide (Magnesium Hydrox/Alum Hydrox 30 Ml Oral.Susp) 30 ml PO Q6H PRN PRN Reason: Heartburn/Nausea Albuterol Sulfate (Albuterol Sulfate 90 Mcg 8 Gm Inhaler) 2 puff INHALE RQ6H PRN PRN Reason: Wheezing Atorvastatin Calcium (Atorvastatin Calcium 20 Mg Tablet) 20 mg PO BEDTIME [facility] Last Admin: 05/22/23 20:10 Dose: 20 mg Clonidine HCl (Clonidine Hcl 0.1 Mg Tablet) 0.1 mg PO DAILY [facility] Last Admin: 05/23/23 08:13 Dose: 0.1 mg Gabapentin (Gabapentin 100 Mg Capsule) 100 mg PO TID [facility] Last Admin: 05/23/23 08:14 Dose: 100 mg Hydroxyzine HCl (Hydroxyzine Hcl 25 Mg Tablet) 25 mg PO Q6H PRN PRN Reason: Anxiety Last Admin: 05/22/23 20:16 Dose: 25 mg Ibuprofen (Ibuprofen 400 Mg Tablet) 400 mg PO Q6H PRN PRN Reason: moderate pain Last Admin: 05/23/23 11:44 Dose: 400 mg Lisinopril (Lisinopril 5 Mg Tablet) 5 mg PO BEDTIME [facility] Last Admin: 05/22/23 20:11 Dose: 5 mg Magnesium Hydroxide (Milk Of Magnesia 30 Ml Oral.Susp) 30 ml PO DAILY PRN PRN Reason: Constipation Metformin HCl (Metformin Hcl Er 500 Mg Tab.Er.24h) 500 mg PO DAILY [facility] Last Admin: 05/23/23 08:14 Dose: 500 mg Methadone HCl (Methadone Hcl 20 Mg/2 Ml Oral.Conc) 95 mg PO DAILY [facility] Last Admin: 05/23/23 08:18 Dose: 95 mg Olanzapine (Olanzapine Odt 10 Mg Tab.Rapdis) 10 mg TRANSLINGU TID PRN PRN Reason: Psychosis Last Admin: 05/21/23 11:04 Dose: 10 mg Olanzapine (Olanzapine 7.5 Mg Tablet) 15 mg PO BEDTIME [facility] Last Admin: 05/22/23 20:11 Dose: 15 mg Omeprazole (Omeprazole 20 Mg Capsule.Dr) 20 mg PO DAILY [facility] Last Admin: 05/23/23 08:14 Dose: 20 mg Sertraline HCl (Sertraline Hcl 50 Mg Tablet) 50 mg PO DAILY [facility] Last Admin: 05/23/23 08:14 Dose: 50 mg Trazodone HCl (Trazodone Hcl 50 Mg Tablet) 50 mg PO BEDTIME MRX1 PRN PRN Reason: Insomnia Last Admin: 05/22/23 20:15 Dose: 50 mg Allergies Allergies Allergy/AdvReac Type Severity Reaction Status Date / Time No Known Allergies Allergy Verified 05/10/23 12:32 Assessment & Plan Assessment & Plan (1) Acute psychosis: Status: Acute Code(s): F23 - Brief psychotic disorder Plan The patient is a 68-year-old male with a past history of psychosis and depression admitted for suicidal ideation with intent to overdose on heroin. The patient was recently admitted into the hospital and discharged with follow-up treatment but then he came at [place] with a plan to kill himself by overdose. Plan 1. Gather collateral information at this moment we have very few information regarding his prior treatment. 2. The patient is actively psychotic hearing voices with derogatory content he agreed to take Zyprexa 5 mg p.o. now on admission. 3. Blood work and medication management. 4. 5 minute checks. It was later changed to 15 minute checks since the patient was not actively suicidal. 5. Reassessment with results. 6. Increase Zyprexa up to 20 mg p.o. q.h.s. to target psychosis on May 13. I lowered back to 15 mg on May 17. 7. Start Zoloft 25 mg p.o. q.a.m. to target depression. We increased Zoloft up to 50 mg on May 19. 8. Increased p.r.n. up to 10 mg p.o. b.i.d. to target psychosis. 9. Add PRN Ibuprofen. Add nicotine patch at patient request. 10. Keep Seroquel 25 p.o. b.i.d. even though he is over-sedated during the day. 11. Start gabapentin 100 mg p.o. t.i.d., increase up to 200 mg po tid but we weill lower to 100 mg po tid due to oversedation on 05/20. 05/22 continue tx. 05/23 continue tx. Reason for continued inpatient stay Substantial Risk for: inability to function Time Spent With Patient Time: Total time managing care of this patient today ____ minutes.
[2023-05-23 18:00] VITALS: BP 143/69; PULSE 60; RESP 18; TEMP 36.6; O2SAT 95
[2023-05-23] MEDS: OLANZapine 7.5 MG TABLET 15 MG PO (20:18)
[2023-05-23] MEDS: traZODone HCL 50 MG TABLET PO (20:19)
[2023-05-23] MEDS: lisinopriL 5 MG TABLET PO (20:20)
[2023-05-23] MEDS: Atorvastatin Calcium 20 MG TABLET PO (20:20)
[2023-05-24] MEDS: hydrOXYzine HCL 25 MG TABLET PO ×2 (02:52→20:46)
[2023-05-24] MEDS: traZODone HCL 50 MG TABLET PO ×2 (02:52→20:46)
[2023-05-24] MEDS: methADONE HCl 20 MG/2 ML ORAL.CONC 95 MG PO (08:12)
[2023-05-24] MEDS: metFORMIN HCl ER 500 MG TAB.ER.24H PO (08:13)
[2023-05-24] MEDS: Sertraline HCL 50 MG TABLET PO (08:13)
[2023-05-24] MEDS: cloNIDine HCL 0.1 MG TABLET PO (08:13)
[2023-05-24] MEDS: Omeprazole 20 MG CAPSULE.DR PO (08:13)
[2023-05-24] MEDS: Gabapentin 100 MG CAPSULE PO ×3 (08:13→20:45)
[2023-05-24 08:45] VITALS: BP 166/77; PULSE 85; RESP 18; TEMP 36.4; O2SAT 95
--- NOTE | 2023-05-24 10:55 | P.PNPSI_ITS ---
Subjective Subjective Date of Service: 05/24/23 Reason For Visit: SI Subjective Notes: Conditional Voluntary Interim History: The nursing staff reported the patient has been attending to groups, he denies auditory hallucinations and he is trying to get himself more involved in the activities of the unit. The social media assistant reported that last Wednesday he attended to the court hearing for his housing and the director of corporate communications told him that he would not be evicted if he pays what he owes in his apartment. Most likely we could be able to discharge her early next week. On interview the patient denies new symptoms denies auditory hallucinations and he is able to contract for safety. His affect looks brighter. He was asking for possible early discharge. Mental Status Exam Mental Status Exam Patient Appearance: Well Grooomed and Appropriate Patient Orientation: Person and Situation Level of Consciousness: Awake and Appropriate Patient Behavior: Guarded and Passive Mood Description: Withdrawn Affect Description: Constricted Patient Cognition Impaired: Yes Ability to Follow Directions: Good Speech Pattern: Clear Hallucinations: None Delusions: Paranoid Ideation Thought Process: Incoherent, Distracted and Evasive Thought Content: positive for [place] and positive for Circumstantial Judgement: Fair Diagnostics Vital Signs (24Hr): Vital Signs - 24 hr 05/23/23 18:00 05/24/23 08:45 Temperature 98 F 97.5 F Pulse Rate 60 85 Respiratory Rate 18 18 Blood Pressure 143/69 H 166/77 H Pulse Oximetry 95 95 Oxygen Delivery Method Room Air Room Air BMI result Body Mass Index 35.9 Labs 05/10/23 13:55 05/21/23 07:49 Medications Medications Current Medications Acetaminophen (Acetaminophen 325 Mg Tablet) 650 mg PO Q6H PRN PRN Reason: Headache/Pain Mild Scale (1-3) Last Admin: 05/19/23 11:16 Dose: 650 mg Al Hydroxide/Mg Hydroxide (Magnesium Hydrox/Alum Hydrox 30 Ml Oral.Susp) 30 ml PO Q6H PRN PRN Reason: Heartburn/Nausea Albuterol Sulfate (Albuterol Sulfate 90 Mcg 8 Gm Inhaler) 2 puff INHALE RQ6H PRN PRN Reason: Wheezing Atorvastatin Calcium (Atorvastatin Calcium 20 Mg Tablet) 20 mg PO BEDTIME KALYN Last Admin: 05/23/23 20:20 Dose: 20 mg Clonidine HCl (Clonidine Hcl 0.1 Mg Tablet) 0.1 mg PO DAILY KALYN Last Admin: 05/24/23 08:13 Dose: 0.1 mg Gabapentin (Gabapentin 100 Mg Capsule) 100 mg PO TID KALYN Last Admin: 05/24/23 08:13 Dose: 100 mg Hydroxyzine HCl (Hydroxyzine Hcl 25 Mg Tablet) 25 mg PO Q6H PRN PRN Reason: Anxiety Last Admin: 05/24/23 02:52 Dose: 25 mg Ibuprofen (Ibuprofen 400 Mg Tablet) 400 mg PO Q6H PRN PRN Reason: moderate pain Last Admin: 05/23/23 11:44 Dose: 400 mg Lisinopril (Lisinopril 5 Mg Tablet) 5 mg PO BEDTIME KALYN Last Admin: 05/23/23 20:20 Dose: 5 mg Magnesium Hydroxide (Milk Of Magnesia 30 Ml Oral.Susp) 30 ml PO DAILY PRN PRN Reason: Constipation Metformin HCl (Metformin Hcl Er 500 Mg Tab.Er.24h) 500 mg PO DAILY KALYN Last Admin: 05/24/23 08:13 Dose: 500 mg Methadone HCl (Methadone Hcl 20 Mg/2 Ml Oral.Conc) 95 mg PO DAILY KALYN Last Admin: 05/24/23 08:12 Dose: 95 mg Olanzapine (Olanzapine Odt 10 Mg Tab.Rapdis) 10 mg TRANSLINGU TID PRN PRN Reason: Psychosis Last Admin: 05/21/23 11:04 Dose: 10 mg Olanzapine (Olanzapine 7.5 Mg Tablet) 15 mg PO BEDTIME KALYN Last Admin: 05/23/23 20:18 Dose: 15 mg Omeprazole (Omeprazole 20 Mg Capsule.Dr) 20 mg PO DAILY KALYN Last Admin: 05/24/23 08:13 Dose: 20 mg Sertraline HCl (Sertraline Hcl 50 Mg Tablet) 50 mg PO DAILY KALYN Last Admin: 05/24/23 08:13 Dose: 50 mg Trazodone HCl (Trazodone Hcl 50 Mg Tablet) 50 mg PO BEDTIME MRX1 PRN PRN Reason: Insomnia Last Admin: 05/24/23 02:52 Dose: 50 mg Allergies Allergies Allergy/AdvReac Type Severity Reaction Status Date / Time No Known Allergies Allergy Verified 05/10/23 12:32 Assessment & Plan Assessment & Plan (1) Acute psychosis: Status: Acute Code(s): F23 - Brief psychotic disorder Plan The patient is a 68-year-old male with a past history of psychosis and depression admitted for suicidal ideation with intent to overdose on heroin. The patient was recently admitted into the hospital and discharged with follow-up treatment but then he came at [place] with a plan to kill himself by overdose. Plan 1. Gather collateral information at this moment we have very few information regarding his prior treatment. 2. The patient is actively psychotic hearing voices with derogatory content he agreed to take Zyprexa 5 mg p.o. now on admission. 3. Blood work and medication management. 4. 5 minute checks. It was later changed to 15 minute checks since the patient was not actively suicidal. 5. Reassessment with results. 6. Increase Zyprexa up to 20 mg p.o. q.h.s. to target psychosis on May 13. I lowered back to 15 mg on May 17. 7. Start Zoloft 25 mg p.o. q.a.m. to target depression. We increased Zoloft up to 50 mg on May 19. 8. Increased p.r.n. up to 10 mg p.o. b.i.d. to target psychosis. 9. Add PRN Ibuprofen. Add nicotine patch at patient request. 10. Keep Seroquel 25 p.o. b.i.d. even though he is over-sedated during the day. 11. Start gabapentin 100 mg p.o. t.i.d., increase up to 200 mg po tid but we weill lower to 100 mg po tid due to oversedation on 05/20. Reason for continued inpatient stay Substantial Risk for: inability to function, rapid decompensation and med/psych decompensation Time Spent With Patient Time: Total time managing care of this patient today _20___ minutes.
[2023-05-24 18:00] VITALS: BP 159/79; PULSE 63; RESP 16; TEMP 36.6; O2SAT 95
[2023-05-24] MEDS: Ibuprofen 400 MG TABLET PO (20:44)
[2023-05-24] MEDS: OLANZapine 7.5 MG TABLET 15 MG PO (20:45)
[2023-05-24] MEDS: lisinopriL 5 MG TABLET PO (20:46)
[2023-05-24] MEDS: OLANZapine ODT 10 MG TAB.RAPDIS TRANSLINGU (20:47)
[2023-05-24] MEDS: Atorvastatin Calcium 20 MG TABLET PO (20:47)
[2023-05-25] MEDS: Acetaminophen 325 MG TABLET 650 MG PO (05:57)
[2023-05-25] MEDS: Ibuprofen 400 MG TABLET PO ×2 (05:58→20:55)
[2023-05-25 08:00] VITALS: BP 128/65; PULSE 65; RESP 20; TEMP 36.1; O2SAT 93
[2023-05-25] MEDS: Omeprazole 20 MG CAPSULE.DR PO (08:08)
[2023-05-25] MEDS: metFORMIN HCl ER 500 MG TAB.ER.24H PO (08:08)
[2023-05-25] MEDS: Sertraline HCL 50 MG TABLET PO (08:09)
[2023-05-25] MEDS: Gabapentin 100 MG CAPSULE PO ×3 (08:09→20:55)
[2023-05-25] MEDS: cloNIDine HCL 0.1 MG TABLET PO (08:09)
[2023-05-25] MEDS: methADONE HCl 20 MG/2 ML ORAL.CONC 95 MG PO (08:10)
--- NOTE | 2023-05-25 09:57 | P.PNPSI_ITS ---
Subjective Subjective Date of Service: 05/25/23 Reason For Visit: SI Subjective Notes: Conditional Voluntary Interim History: The nursing staff reported the patient has been cheerful, compliant with treatment denies SI. The nephrology social worker reported that tomorrow a subsidized ancillary program will come and assess him to helping with his rent. On interview the patient denies new symptoms we were working on discharge planning and he liked the idea of the ancillary problem for his rent. Mental Status Exam Mental Status Exam Patient Appearance: Well Grooomed and Appropriate Patient Orientation: Person and Situation Level of Consciousness: Awake and Appropriate Patient Behavior: Guarded and Passive Mood Description: Calm Affect Description: Constricted Patient Cognition Impaired: Yes Ability to Follow Directions: Good Speech Pattern: Clear Hallucinations: None Delusions: Not Present Thought Process: Distracted and Slowed Thinking Thought Content: positive for [place] and positive for Circumstantial Judgement: Fair Diagnostics Vital Signs (24Hr): Vital Signs - 24 hr 05/24/23 18:00 Temperature 98 F Pulse Rate 63 Respiratory Rate 16 Blood Pressure 159/79 H Pulse Oximetry 95 Oxygen Delivery Method Room Air BMI result Body Mass Index 35.9 Labs 05/10/23 13:55 05/21/23 07:49 Medications Medications Current Medications Acetaminophen (Acetaminophen 325 Mg Tablet) 650 mg PO Q6H PRN PRN Reason: Headache/Pain Mild Scale (1-3) Last Admin: 05/25/23 05:57 Dose: 650 mg Al Hydroxide/Mg Hydroxide (Magnesium Hydrox/Alum Hydrox 30 Ml Oral.Susp) 30 ml PO Q6H PRN PRN Reason: Heartburn/Nausea Albuterol Sulfate (Albuterol Sulfate 90 Mcg 8 Gm Inhaler) 2 puff INHALE RQ6H PRN PRN Reason: Wheezing Atorvastatin Calcium (Atorvastatin Calcium 20 Mg Tablet) 20 mg PO BEDTIME KALYN Last Admin: 05/24/23 20:47 Dose: 20 mg Clonidine HCl (Clonidine Hcl 0.1 Mg Tablet) 0.1 mg PO DAILY KALYN Last Admin: 05/25/23 08:09 Dose: 0.1 mg Gabapentin (Gabapentin 100 Mg Capsule) 100 mg PO TID KALYN Last Admin: 05/25/23 08:09 Dose: 100 mg Hydroxyzine HCl (Hydroxyzine Hcl 25 Mg Tablet) 25 mg PO Q6H PRN PRN Reason: Anxiety Last Admin: 05/24/23 20:46 Dose: 25 mg Ibuprofen (Ibuprofen 400 Mg Tablet) 400 mg PO Q6H PRN PRN Reason: moderate pain Last Admin: 05/25/23 05:58 Dose: 400 mg Lisinopril (Lisinopril 5 Mg Tablet) 5 mg PO BEDTIME [facility] Last Admin: 05/24/23 20:46 Dose: 5 mg Magnesium Hydroxide (Milk Of Magnesia 30 Ml Oral.Susp) 30 ml PO DAILY PRN PRN Reason: Constipation Metformin HCl (Metformin Hcl Er 500 Mg Tab.Er.24h) 500 mg PO DAILY KALYN Last Admin: 05/25/23 08:08 Dose: 500 mg Methadone HCl (Methadone Hcl 20 Mg/2 Ml Oral.Conc) 95 mg PO DAILY [facility] Last Admin: 05/25/23 08:10 Dose: 95 mg Olanzapine (Olanzapine Odt 10 Mg Tab.Rapdis) 10 mg TRANSLINGU TID PRN PRN Reason: Psychosis Last Admin: 05/24/23 20:47 Dose: 10 mg Olanzapine (Olanzapine 7.5 Mg Tablet) 15 mg PO BEDTIME [facility] Last Admin: 05/24/23 20:45 Dose: 15 mg Omeprazole (Omeprazole 20 Mg Capsule.Dr) 20 mg PO DAILY [facility] Last Admin: 05/25/23 08:08 Dose: 20 mg Sertraline HCl (Sertraline Hcl 50 Mg Tablet) 50 mg PO DAILY [facility] Last Admin: 05/25/23 08:09 Dose: 50 mg Trazodone HCl (Trazodone Hcl 50 Mg Tablet) 50 mg PO BEDTIME MRX1 PRN PRN Reason: Insomnia Last Admin: 05/24/23 20:46 Dose: 50 mg Allergies Allergies Allergy/AdvReac Type Severity Reaction Status Date / Time No Known Allergies Allergy Verified 05/10/23 12:32 Assessment & Plan Assessment & Plan (1) Acute psychosis: Status: Acute Code(s): F23 - Brief psychotic disorder Plan The patient is a 68-year-old male with a past history of psychosis and depression admitted for suicidal ideation with intent to overdose on heroin. The patient was recently admitted into the hospital and discharged with follow-up treatment but then he came at [place] with a plan to kill himself by overdose. Plan 1. Gather collateral information at this moment we have very few information regarding his prior treatment. 2. The patient is actively psychotic hearing voices with derogatory content he agreed to take Zyprexa 5 mg p.o. now on admission. 3. Blood work and medication management. 4. 5 minute checks. It was later changed to 15 minute checks since the patient was not actively suicidal. 5. Reassessment with results. 6. Increase Zyprexa up to 20 mg p.o. q.h.s. to target psychosis on May 13. I lowered back to 15 mg on May 17. 7. Start Zoloft 25 mg p.o. q.a.m. to target depression. We increased Zoloft up to 50 mg on May 19. 8. Increased p.r.n. up to 10 mg p.o. b.i.d. to target psychosis. 9. Add PRN Ibuprofen. Add nicotine patch at patient request. 10. Keep Seroquel 25 p.o. b.i.d. even though he is over-sedated during the day. 11. Start gabapentin 100 mg p.o. t.i.d., increase up to 200 mg po tid but we weill lower to 100 mg po tid due to oversedation on 05/20. Reason for continued inpatient stay Substantial Risk for: inability to function, rapid decompensation and med/psych decompensation Time Spent With Patient Time: Total time managing care of this patient today __20__ minutes.
[2023-05-25 18:00] VITALS: BP 169/79; PULSE 71; RESP 18; TEMP 36.6; O2SAT 93
[2023-05-25] MEDS: traZODone HCL 50 MG TABLET PO (20:55)
[2023-05-25] MEDS: Atorvastatin Calcium 20 MG TABLET PO (20:55)
[2023-05-25] MEDS: hydrOXYzine HCL 25 MG TABLET PO (20:56)
[2023-05-25] MEDS: lisinopriL 5 MG TABLET PO (20:57)
[2023-05-25] MEDS: OLANZapine 7.5 MG TABLET 15 MG PO (20:57)
[2023-05-26] MEDS: Ibuprofen 400 MG TABLET PO ×2 (04:20→23:30)
[2023-05-26 06:00] VITALS: BP 140/71; PULSE 82; RESP 18; O2SAT 93
[2023-05-26] MEDS: metFORMIN HCl ER 500 MG TAB.ER.24H PO (08:58)
[2023-05-26] MEDS: Omeprazole 20 MG CAPSULE.DR PO (08:58)
[2023-05-26] MEDS: Gabapentin 100 MG CAPSULE PO ×3 (08:58→23:24)
[2023-05-26] MEDS: cloNIDine HCL 0.1 MG TABLET PO (08:58)
[2023-05-26] MEDS: Sertraline HCL 50 MG TABLET PO (08:58)
[2023-05-26] MEDS: methADONE HCl 20 MG/2 ML ORAL.CONC 95 MG PO (08:59)
[2023-05-26] MEDS: OLANZapine ODT 10 MG TAB.RAPDIS TRANSLINGU (11:04)
--- NOTE | 2023-05-26 11:05 | HO.PSYCHPN ---
Subjective Subjective Date of Service: 05/26/23 Reason For Visit: SI Subjective Notes: Conditional Voluntary Interim History: The nursing staff reported the patient had a but night he slept poorly. He stated that he tries to keep himself busy so he cannot act out on his voices. Apparently last night there was a room change his and new roommate who is loud at night. The occupational therapist reported that he has court 15/30 on the [place] and 4.4 on the Christos test. On interview, the patient was asking about discharge we discussed about the results of his cognitive assessment and he agreed to start Aricept 5 mg p.o. q.h.s.. Most likely he will be discharged tomorrow after assessment of the ancillary staff in the community. Mental Status Exam Mental Status Exam Patient Appearance: Appropriate Patient Orientation: Person and Situation Level of Consciousness: Awake and Appropriate Patient Behavior: Guarded and Passive Mood Description: Calm Affect Description: Constricted Patient Cognition Impaired: Yes Ability to Follow Directions: Good Speech Pattern: Clear Hallucinations: Auditory Delusions: Not Present Thought Process: Distracted and Linear Thought Content: positive for [place], positive for Circumstantial and positive for [place] of Content Judgement: Fair Diagnostics Vital Signs (24Hr): Vital Signs - 24 hr 05/25/23 18:00 05/26/23 06:00 Temperature 97.8 F Pulse Rate 71 82 Respiratory Rate 18 18 Blood Pressure 169/79 H 140/71 H Pulse Oximetry 93 93 Oxygen Delivery Method Room Air Room Air BMI result Body Mass Index 35.9 Labs 05/10/23 13:55 05/21/23 07:49 Medications Medications Current Medications Acetaminophen (Acetaminophen 325 Mg Tablet) 650 mg PO Q6H PRN PRN Reason: Headache/Pain Mild Scale (1-3) Last Admin: 05/25/23 05:57 Dose: 650 mg Al Hydroxide/Mg Hydroxide (Magnesium Hydrox/Alum Hydrox 30 Ml Oral.Susp) 30 ml PO Q6H PRN PRN Reason: Heartburn/Nausea Albuterol Sulfate (Albuterol Sulfate 90 Mcg 8 Gm Inhaler) 2 puff INHALE RQ6H PRN PRN Reason: Wheezing Atorvastatin Calcium (Atorvastatin Calcium 20 Mg Tablet) 20 mg PO BEDTIME KALYN Last Admin: 05/25/23 20:55 Dose: 20 mg Clonidine HCl (Clonidine Hcl 0.1 Mg Tablet) 0.1 mg PO DAILY KALYN Last Admin: 05/26/23 08:58 Dose: 0.1 mg Donepezil HCl (Donepezil Hcl 5 Mg Tablet) 5 mg PO BEDTIME KALYN Gabapentin (Gabapentin 100 Mg Capsule) 100 mg PO TID [facility] Last Admin: 05/26/23 08:58 Dose: 100 mg Hydroxyzine HCl (Hydroxyzine Hcl 25 Mg Tablet) 25 mg PO Q6H PRN PRN Reason: Anxiety Last Admin: 05/25/23 20:56 Dose: 25 mg Ibuprofen (Ibuprofen 400 Mg Tablet) 400 mg PO Q6H PRN PRN Reason: moderate pain Last Admin: 05/26/23 04:20 Dose: 400 mg Lisinopril (Lisinopril 5 Mg Tablet) 5 mg PO BEDTIME [facility] Last Admin: 05/25/23 20:57 Dose: 5 mg Magnesium Hydroxide (Milk Of Magnesia 30 Ml Oral.Susp) 30 ml PO DAILY PRN PRN Reason: Constipation Metformin HCl (Metformin Hcl Er 500 Mg Tab.Er.24h) 500 mg PO DAILY [facility] Last Admin: 05/26/23 08:58 Dose: 500 mg Methadone HCl (Methadone Hcl 20 Mg/2 Ml Oral.Conc) 95 mg PO DAILY [facility] Last Admin: 05/26/23 08:59 Dose: 95 mg Olanzapine (Olanzapine Odt 10 Mg Tab.Rapdis) 10 mg TRANSLINGU TID PRN PRN Reason: Psychosis Last Admin: 05/26/23 11:04 Dose: 10 mg Olanzapine (Olanzapine 7.5 Mg Tablet) 15 mg PO BEDTIME [facility] Last Admin: 05/25/23 20:57 Dose: 15 mg Omeprazole (Omeprazole 20 Mg Capsule.Dr) 20 mg PO DAILY [facility] Last Admin: 05/26/23 08:58 Dose: 20 mg Sertraline HCl (Sertraline Hcl 50 Mg Tablet) 50 mg PO DAILY [facility] Last Admin: 05/26/23 08:58 Dose: 50 mg Trazodone HCl (Trazodone Hcl 50 Mg Tablet) 50 mg PO BEDTIME MRX1 PRN PRN Reason: Insomnia Last Admin: 05/25/23 20:55 Dose: 50 mg Allergies Allergies Allergy/AdvReac Type Severity Reaction Status Date / Time No Known Allergies Allergy Verified 05/10/23 12:32 Assessment & Plan Assessment & Plan (1) Acute psychosis: Status: Acute Code(s): F23 - Brief psychotic disorder Plan The patient is a 68-year-old male with a past history of psychosis and depression admitted for suicidal ideation with intent to overdose on heroin. The patient was recently admitted into the hospital and discharged with follow-up treatment but then he came at [place] with a plan to kill himself by overdose. Plan 1. Gather collateral information at this moment we have very few information regarding his prior treatment. 2. The patient is actively psychotic hearing voices with derogatory content he agreed to take Zyprexa 5 mg p.o. now on admission. 3. Blood work and medication management. 4. 5 minute checks. It was later changed to 15 minute checks since the patient was not actively suicidal. 5. Reassessment with results. 6. Increase Zyprexa up to 20 mg p.o. q.h.s. to target psychosis on May 13. I lowered back to 15 mg on May 17. 7. Start Zoloft 25 mg p.o. q.a.m. to target depression. We increased Zoloft up to 50 mg on May 19. 8. Increased p.r.n. up to 10 mg p.o. b.i.d. to target psychosis. 9. Add PRN Ibuprofen. Add nicotine patch at patient request. 10. Keep Seroquel 25 p.o. b.i.d. even though he is over-sedated during the day. 11. Start gabapentin 100 mg p.o. t.i.d., increase up to 200 mg po tid but we weill lower to 100 mg po tid due to oversedation on 05/20. 12. Start Aricept 5 mg p.o. q.h.s. to target cognitive impairment. Reason for continued inpatient stay Substantial Risk for: inability to function, rapid decompensation and med/psych decompensation Time Spent With Patient Time: Total time managing care of this patient today ___20_ minutes.
[2023-05-26] MEDS: Acetaminophen 325 MG TABLET 650 MG PO (14:15)
[2023-05-26] MEDS: lisinopriL 5 MG TABLET PO (23:24)
[2023-05-26] MEDS: Atorvastatin Calcium 20 MG TABLET PO (23:24)
[2023-05-26] MEDS: Donepezil HCl 5 MG TABLET PO (23:24)
[2023-05-26] MEDS: OLANZapine 7.5 MG TABLET 15 MG PO (23:24)
[2023-05-26] MEDS: hydrOXYzine HCL 25 MG TABLET PO (23:28)
[2023-05-26] MEDS: traZODone HCL 50 MG TABLET PO (23:29)
[2023-05-26 23:40] VITALS: BP 133/67; PULSE 63; RESP 17; TEMP 36.2; O2SAT 93
[2023-05-27 08:00] VITALS: BP 148/74; PULSE 74; RESP 18; TEMP 36.6; O2SAT 96
[2023-05-27] MEDS: cloNIDine HCL 0.1 MG TABLET PO (09:02)
[2023-05-27] MEDS: Omeprazole 20 MG CAPSULE.DR PO (09:02)
[2023-05-27] MEDS: Gabapentin 100 MG CAPSULE PO (09:02)
[2023-05-27] MEDS: metFORMIN HCl ER 500 MG TAB.ER.24H PO (09:03)
[2023-05-27] MEDS: Sertraline HCL 50 MG TABLET PO (09:03)
[2023-05-27] MEDS: methADONE HCl 20 MG/2 ML ORAL.CONC 95 MG PO (09:06)
--- NOTE | 2023-05-27 09:40 | P.DS_ITS ---
DS: Providers Provider Date of Service: 05/27/23 Date of admission: 05/11/23 11:05 Date of discharge: 05/27/23 Primary care physician: Unknown Physician Consults: 05/10/23 12:32 Consult to Care Team Stat Comment: Reason for consultation: hallucinations 05/10/23 13:28 Consult to Care Team Stat Comment: Reason for consultation: SI DS: Diagnosis Discharge Diagnosis (1) Acute psychosis: Status: Acute DS: Medications Discharge Medications Home Medications: Home Medications Medication Instructions Recorded Confirmed atorvastatin 20 mg PO BEDTIME 05/10/23 05/10/23 clonidine 0.1 mg PO DAILY 05/10/23 05/10/23 lisinopril 5 mg PO BEDTIME 05/10/23 05/10/23 metformin 500 mg tablet,extended 500 mg PO DAILY 05/10/23 05/10/23 release 24 hr olanzapine 15 mg PO BEDTIME 05/10/23 05/10/23 pantoprazole 40 mg PO DAILY 05/10/23 05/10/23 quetiapine 25 mg tablet 25 mg PO BID 05/10/23 05/10/23 methadone 10 mg/5 mL oral solution 95 mg PO DAILY 05/11/23 05/11/23 Mental Status Exam Mental Status Exam Patient Appearance: Well Grooomed and Appropriate Patient Orientation: Person and Situation Level of Consciousness: Awake and Appropriate Patient Behavior: Appropriate Mood Description: Calm Affect Description: Constricted Patient Cognition Impaired: Yes Ability to Follow Directions: Good Speech Pattern: Clear Hallucinations: None and Auditory (Sporadic auditory hallucinations with no behavioral response) Delusions: Not Present Thought Process: Linear Thought Content: positive for [place] and positive for Circumstantial Judgement: Fair Data Data Completed and Pending Completed studies during hospitalization [Text1]: 05/21/23 07:49 Creatinine 1.05 Estim Creat Clear Calc 95.9 Estimated GFR > 60 05/10/23 Unknown Urine clean catch - Urine vázquez top Urine Culture - Final DS: Summary Hospital Course Hospital Course: The patient is a 68-year-old male with a prior history of schizophrenia and opioid use disorder who was assessed in the emergency room of another hospital for exacerbation of psychosis and suicidal ideation with a plan to overdose on heroin. He was assessed by the crisis team referred into this facility for continuation of care. Please see the HPI of the admission note for further details. On admission, the patient was grossly psychotic, with severe thought blocking, responding to internal stimuli. The patient reported that Zyprexa used to work well for him and we kept his Zyprexa 50 mg p.o. q.h.s. and at several PRNs, on admission he was taking up to 25 mg of olanzapine with some improvement of his psychosis. We try to gather collateral information and apparently the patient lives alone in [place] and he had been having problems with housing. His land or wanted to evicted him and he was feeling overwhelmed with the possibility homelessness. We help him home the housing court and his eviction process was stopped. The patient also reported that he was dysphoric so we started on sole of titrated up to 50 mg p.o. daily with no side effects and improvement of his depression. He has hallucinations improved, he was more logical and goal oriented. Sporadically he had auditory hallucinations but he was able to cope with them. We also add a low dose of gabapentin to help him with his anxiety, we try to titrate up to 200 mg but he was over-sedated. The patient was able to participate in groups, he was future oriented and we help him with other ancillary services such as a not for profit who will help him with his rent. Since there were no safety concerns discharge planning was discussed. Time spent discussing smoking cessation with patient: 3 to 10 minutes Status at Discharge Cognitive/behavioral status at discharge: Impaired at baseline but able to function in the community Functional status at discharge: independent ambulation Overall status at discharge: patient is back to baseline Time Spent with Patient Time attestation: Total time managing care of this patient today __30__ minutes. Time spent: Less than 30 minutes Discharge Plan Discharge Anticipated Discharge Date/Time: 05/27/23 10:00 Patient Disposition: Home, Self-Care Discharge Diagnosis: Schizophrenia Opioid use disorder on agonist therapy Referrals: Dr. Juan Pablo Espinal - PCP [Other] - 06/03/23 10:45 am (Appointment is Phone or Virtual: 06/03/2023 @ 10:45am ) Dr. Belen Solorio - Psychiatrist [Other] - 08/17/23 1:30 pm (Appointment: 08/17/2023 @ 1:30pm ) Health Care [facility] [Other] - 05/28/23 9:30 am (Walk-in 05/28/2023 @ 9:30 am ) Physician,Unknown J [Primary Care Provider] - 1 Week Discharge Medications: New acetaminophen 325 mg Tablet 650 mg PO Q6H PRN (Reason: Headache/Pain Mild Scale (1-3)) 30 Days Qty: 60 0RF donepezil 5 mg Tablet 5 mg PO BEDTIME 30 Days Qty: 30 0RF albuterol sulfate [Ventolin HFA] 90 mcg/actuation Hfa Aerosol Inhaler 2 puff inhalation RQ6H PRN (Reason: Wheezing) 30 Days Qty: 1 0RF trazodone 50 mg Tablet 50 mg PO BEDTIME MRX1 PRN (Reason: Insomnia) 30 Days Qty: 30 0RF ibuprofen 400 mg Tablet 400 mg PO Q6H PRN (Reason: moderate pain) 30 Days Qty: 60 0RF hydroxyzine HCl 25 mg Tablet 25 mg PO Q6H PRN (Reason: Anxiety) 30 Days Qty: 60 0RF gabapentin 100 mg Capsule 100 mg PO TID 30 Days Qty: 90 0RF sertraline 50 mg Tablet 50 mg PO DAILY 30 Days Qty: 30 0RF Continued methadone 10 mg/5 mL Solution 95 mg PO DAILY Rx Instructions: [facility] Enrique @ [phone] metformin 500 mg Tablet Extended Release 24 Hr 500 mg PO DAILY 30 Days Qty: 30 0RF atorvastatin 20 mg PO BEDTIME 30 Days Qty: 30 0RF clonidine 0.1 mg PO DAILY 30 Days Qty: 30 0RF lisinopril 5 mg PO BEDTIME 30 Days Qty: 30 0RF olanzapine 15 mg PO BEDTIME 30 Days Qty: 30 0RF pantoprazole 40 mg PO DAILY 30 Days Qty: 30 0RF Discontinued quetiapine 25 mg tablet 25 mg PO BID Discharge Orders: Discharge Order (Routine); Ordered 05/27/23 Ordered By: Ricky Bearden Diet: Advance to usual diet Activity on Discharge: As tolerated Stand Alone Forms: Patient Portal Discharge page Care Plan Goals: Care plan goals achieved in this admission Health Concerns: Continue treatment with outpatient providers primary care physician Plan of Treatment: Continue with psychiatric treatment as an outpatient. Continue with methadone clinic Continue with ancillary services Assessment: Elderly male with a past history of schizophrenia and opiate use disorder admitted for exacerbation of psychosis with suicidal ideation. He was started on Zoloft and added on Neurontin for anxiety. We kept his Zyprexa and 50 mg p.o. q.h.s. with for improvement. At this moment safe to be in the community.
== END 2023-05-27 13:40 | disposition home or self-care (01) | DRG 885 ==
LOC: HO.ED 05-11 06:57 → HO.PGERI 05-11 11:27
PROVIDERS: Physician Assistant; Student in an Organized Health Care Education/Training Program; Admitting Provider Psychiatry & Neurology Psychiatry; Emergency Provider Emergency Medicine Emergency Medical Services; Visit Provider Psychiatry & Neurology Psychiatry
DX: F20.9 Schizophrenia, unspecified (principal); F11.20 Opioid dependence, uncomplicated; R45.851 Suicidal ideations; F17.210 Nicotine dependence, cigarettes, uncomplicated; Z20.822 Contact with and (suspected) exposure to COVID-19; Z71.6 Tobacco abuse counseling; Z79.84 Long term (current) use of oral hypoglycemic drugs; Z79.899 Other long term (current) drug therapy
CPT/HCPCS: 36415; 80053; 80061; 80143; 80179; 80307; 81001; 82565; 82947; 83735; 85025; 87086; 87635; 93005; 99285; S9485

== ENCOUNTER → 2023-05-10 12:41 | Outpatient (BNV) | payer MEDICARE, SELFPAY | PROVIDERS: Emergency Provider Student in an Organized Health Care Education/Training Program; Visit Provider Internal Medicine Cardiovascular Disease | DX: I45.81 Long QT syndrome (principal) | CPT/HCPCS: 93010 ==

== ENCOUNTER → 2023-05-11 11:05 | Outpatient (BNV) | payer OTHER, SELFPAY | PROVIDERS: Admitting Provider Psychiatry & Neurology Psychiatry; Emergency Provider Emergency Medicine Emergency Medical Services; Visit Provider Psychiatry & Neurology Psychiatry | DX: F23 Brief psychotic disorder (principal) | CPT/HCPCS: 99221; 99231; 99232; 99238 ==